=== PATIENT | female | born 2000 | race Caucasian/White ===

== ENCOUNTER 2018-03-30 22:23 | Emergency (ER) | payer SELFPAY ==
[2018-03-30 22:24] VITALS: BP 139/78; PULSE 77; RESP 16; TEMP 36.1; O2SAT 100; BMI 26.2
--- NOTE | 2018-03-30 23:11 | EKG12_ITS ---
Test Reason : GI BLEED Blood Pressure : / mmHG Vent. Rate : 061 BPM Atrial Rate : 061 BPM P-R Int : 144 ms QRS Dur : 082 ms QT Int : 402 ms P-R-T Axes : 053 058 035 degrees QTc Int : 404 ms Normal sinus rhythm Normal ECG Confirmed by BHASKAR ANDINO, IVONNE ([id number]), editor magazine SHERYL SANTOS ([id number] on 04/01/2018 2:19:54 PM Referred By: MAURICIO Confirmed By:IVONNE MURO MD
--- NOTE | 2018-03-30 23:11 | RAD_ITS ---
STUDY: X-RAY CHEST REASON FOR EXAM: Female, 17 years old. Chest pain TECHNIQUE: 2 views COMPARISON: None. FINDINGS: The lungs are clear and expanded. There is no demonstrated pleural abnormality. Normal size heart. Normal mediastinum and saida. Normal visualized pulmonary arteries. Normal visualized aortic arch and descending thoracic aorta. Normal visualized thoracic spine. Normal visualized ribs, clavicles, and shoulders. There is no demonstrated abnormality of the visualized soft tissue structures of the upper abdomen. RAD/Chest PA and Lateral IMPRESSION: Normal x-ray examination of the chest. No acute findings in the lungs Electronically Signed: Rey Schilling MD at 0:24 EST Tel , Service support ,
--- NOTE | 2018-03-30 23:14 | ED.RN ---
NO OLD EKGS IN MUSE
[2018-03-30 23:32] LABS: Absolute Lymphocyte Count 3.91 X10^3/ul (0.83-4.51); Absolute Neutrophil Count 3.1 X10^3/uL (2.0-7.7); Basophil# 0.09 X10^3/uL; Basophil% 1.1 % (0-1); Eosinophil# 0.11 X10^3/uL; Eosinophils% 1.4 % (0-5); Hemoglobin 13.2 g/dl (12.0-15.0); Lymphocyte # 3.91 X10^3/ul (4.0); Lymphocyte % 48.1 % (19-41); Mean Corp Hgb Conc 33.8 g/gl (32-36); Mean Corpuscular Hgb 30.6 pg (27.0-32.0); Mean Corpuscular Volume 90.5 fL (81-99); Mean Platelet Vol. 8.9 fl (6.2-12.0); Monocyte# 0.87 X10^3/uL; Monocyte% 10.7 % (0-10); Neutrophil % 38.1 % (47-70); Platelet Count 369 K/mm3 (150-450); RBC Distribution Width CV 12.3 % (11.6-14.6); RBC Distribution Width SD 40.5 fl (35.1-43.9); Red Blood Count 4.31 M/mm3 (4.2-5.4); White Blood Count 8.1 K/mm3 (4.4-11.0)
[2018-03-30 23:33] LABS: Differential Indicated SCAN CRITERIA MET; POSITIVE COUNT NO; POSITIVE DIFFERENTIAL NO; POSITIVE MORPHOLOGY YES
[2018-03-30 23:43] LABS: Anion Gap 8 (5-15); BUN 9 mg/dL (7-18); BUN/Creat Ratio 12.7 RATIO (10-20); Calcium,Total 8.6 mg/dL (8.5-10.1); Chloride 103 mmol/L (98-107); Creatinine, Serum 0.71 mg/dL (0.55-1.02); EST Glomerular Filtration Rate 112 mL/min (>60); Est Glom Filt Rate - Afr Amer 136 mL/min (>60); Estimated Creatinine Clearance 105.43 ml/min; Glucose 79 mg/dL (74-106); Potassium 3.1 mmol/L (3.5-5.1); Sodium Level 139 mmol/L (136-145)
--- NOTE | 2018-03-31 00:22 | ED.RN ---
lab called with critical lab results. Positive fecal occult blood. Dr. Orellana made aware. no new orders at this time
[2018-03-31 00:34] VITALS: BP 103/62; PULSE 60; RESP 18; O2SAT 99
--- NOTE | 2018-03-31 00:53 | ED.DCSUM_ITS ---
- ER Visit Summary Date of Service: 03/31/18 Chief Complaint: Multiple complaints History of Present Illness: The patient is a 17 F who presents with multiple complaints. She states that she has been sick for about 2 weeks. She reports subjective fevers congestion rhinorrhea sore throat and cough. She states she was seen in urgent care and had a positive rapid strep so was started on amoxicillin and Magic mouthwash. She complains of some ongoing shortness of breath. She has had diarrhea since starting the hallux. Today she noticed some blood on the toilet tissue. No abdominal pain nausea vomiting. She is not anticoagulated. No history of prior similar symptoms. Physical Examination: Afebrile vitals are normal Moist mucous membranes Heart regular rate and rhythm Lungs are clear Abdomen soft nontender Mucoid blood streaked stool on rectal examination nontender Test Results: EKG shows sinus rhythm at a rate of 61. Labs notable for potassium 3.1. Hemoccult was positive. Chest x-ray shows no acute findings. Emergency Department Course and Treatment: I suspect that the patient's diarrhea is related to her antibiotics and hematochezia is likely just related to the diarrhea. She is stable. She has normal hemoglobin and antibiotics. She was advised to follow-up as an outpatient. She understands return for new or worsening symptoms and she was discharged home. Treatment Plan: [] Disposition: Discharge Impression: Hematochezia Bronchitis This note was generated with [employer] dictation software. It may contain incorrect words, spelling, and punctuation that were not noted in review of the chart prior to signing ED Disposition - Plan for ED Patient: Chief Complaint: GI Bleed Referrals: Raleigh Brink DO [Primary Care Provider] -
--- NOTE | 2018-03-31 00:53 | ED.DEP ---
ED Disposition - Plan for ED Patient: Chief Complaint: GI Bleed Instructions: ED Hematochezia Stable Referrals: Raleigh Brink DO [Primary Care Provider] -
[2018-03-31 01:07] VITALS: BP 103/62; PULSE 64; RESP 18; O2SAT 99
== END 2018-03-31 01:07 | disposition home or self-care (01) ==
PROVIDERS: Emergency Provider Emergency Medicine; Family Provider Family Medicine; PCP Family Medicine
DX: J40 Bronchitis, not specified as acute or chronic (principal); K92.1 Melena; F32.9 Major depressive disorder, single episode, unspecified
CPT/HCPCS: 71046; 80048; 82274; 85025; 93005; 99282

== ENCOUNTER 2018-05-21 18:36 | Emergency (ER) | payer MEDICAID, SELFPAY ==
[2018-05-21 18:37] VITALS: BP 131/73; PULSE 89; RESP 16; TEMP 36.4; O2SAT 100; BMI 25.6
[2018-05-21] MEDS: 0.9% Normal Saline 1,000 ML 1000 ML IV (19:43)
[2018-05-21] MEDS: Ondansetron 4 MG/2 ML Vial IV (19:44)
--- NOTE | 2018-05-21 19:56 | ED.VISSUMM ---
- ER Visit Summary Date of Service: 05/21/18 Chief Complaint: Feeling poorly History of Present Illness: The patient is a 18 F who states for the past 1-2 weeks she has felt dizzy. She states that she has been feeling nauseated. She states that she has hit her head several times at work and wonders if that has been making her dizzy. Each time she has hit her head she did resulted in no trauma and no loss of consciousness. Today she was more nauseated than normal. She also notes a midline pelvic pain. She states that she is due for her menstrual cycle. She is concerned that she may have an ovarian cyst. no fevers. She has had prior cholecystectomy. She has not seen her doctor for this. Physical Examination: Afebrile vital signs are stable Gen: Well-nourished well-developed Head: Normocephalic atraumatic Eyes: Perrl EOMI ENT: TMs clear no rhinorrhea moist mucous membranes Neck: Supple no lymphadenopathy no JVD nontender CVS: Regular rate rhythm no murmurs normal S1-S2 Respiratory: No distress clear to auscultation bilaterally chest nontender Abdomen: Soft nontender nondistended normal bowel sounds no masses Back: Nontender Extremity: Nontender no edema Skin: Normal color no rash Neuro: alert orientated ?3 CN II-XII intact normal strength sensation reflexes gait cerebellar Psych: Normal affect normal mood Test Results: CBC CMP lipase urinalysis patency test negative. CT down pelvis demonstrated small bilateral cyst on the ovaries. Emergency Department Course and Treatment: Patient received IV fluids and Zofran. Write for the patient have Zofran. She will be discharged home with supportive care instructions to return if worsening or concerns. She needs to follow-up with her doctors. Impression: 1. Nausea 2. Bilateral ovarian cyst This note was generated with [employer] dictation software. It may contain incorrect words, spelling, and punctuation that were not noted in review of the chart prior to signing ED Disposition - Plan for ED Patient: Disposition: Home or Assisted Living Chief Complaint: Abd Pain Instructions: ED Cyst Ovarian Prescriptions: Ondansetron [Zofran Odt] 4 mg PO Q6H PRN PRN #14 tab PRN Reason: Nausea Referrals: Raleigh Brink, [Primary Care Provider] - 3-5 Days if not improving
[2018-05-21 20:01] LABS: Bacteria 0 SEEN /hpf (None Seen); Mucous, Urine 0 SEEN /hpf (<or=2+); Red Blood Cells-Urine 0 SEEN /hpf (0-5); Squamous Epithelial Cells - UA 0 SEEN /hpf (5-10); White Blood Cells 0 SEEN /hpf (0-5)
[2018-05-21 20:10] LABS: Color, Urine Yellow (Yellow); Glucose, Dipstick Normal (Normal); Ketone-Dipstick Negative (Negative); Leukocyte Esterase-Dipstick Negative /ul (Negative); Nitrite-Dipstick Negative (Negative); Occult Blood-Urine Negative /ul (Negative); Protein-Dipstick Negative (Negative); Specific Gravity, Urine 1.015 (1.002-1.030); Urine Bilirubin Dipstick Negative (Negative); Urine Clarity Clear (Clear); Urine Urobilinogen Normal (Normal)
[2018-05-21 20:18] LABS: Absolute Neutrophil Count 3.1 X10^3/uL (2.0-7.7); Basophil# 0.04 X10^3/uL; Basophil% 0.6 % (0-1); Eosinophil# 0.13 X10^3/uL; Eosinophils% 1.8 % (0-5); Hematocrit 39.2 % (37-47); Hemoglobin 12.7 g/dl (12.0-15.0); Lymphocyte % 42.7 % (19-41); Mean Corp Hgb Conc 32.4 g/gl (32-36); Mean Corpuscular Hgb 29.8 pg (27.0-32.0); Mean Platelet Vol. 10.2 fl (6.2-12.0); Monocyte# 0.72 X10^3/uL; Monocyte% 10.2 % (0-10); Neutrophil # 3.13 X10^3/uL (2.7-7.7); Neutrophil % 44.6 % (47-70); POSITIVE COUNT NO; POSITIVE DIFFERENTIAL NO; POSITIVE MORPHOLOGY NO; Platelet Count 267 K/mm3 (150-450); RBC Distribution Width CV 12.9 % (11.6-14.6); RBC Distribution Width SD 41.9 fl (35.1-43.9); Red Blood Count 4.26 M/mm3 (4.2-5.4)
[2018-05-21 20:23] LABS: ALB/GLOB Ratio 1.1 RATIO (0.9-2.4); AST(SGOT) 41 U/L (15-37); Alanine Aminotransfer ALT/SGPT 121 U/L (13-56); Albumin, Serum 3.6 g/dL (3.2-5.0); Alkaline Phosphatase 67 U/L (45-117); Anion Gap 8 (5-15); BUN 20 mg/dL (7-18); BUN/Creat Ratio 28.1 RATIO (10-20); Calcium,Total 8.8 mg/dL (8.5-10.1); Chloride 105 mmol/L (98-107); Creatinine, Serum 0.71 mg/dL (0.55-1.02); EST Glomerular Filtration Rate 111 mL/min (>60); Est Glom Filt Rate - Afr Amer 134 mL/min (>60); Estimated Creatinine Clearance 99.96 ml/min; Globulin 3.4 g/dL (2.2-4.2); Glucose 85 mg/dL (74-106); Internal QC Validated? YES +Cl - CLEAR BKGD; Lipase 91 U/L (73-393); Potassium 3.5 mmol/L (3.5-5.1); Pregnancy, Urine Negative Negative; Sodium Level 142 mmol/L (136-145)
--- NOTE | 2018-05-21 20:48 | CT_ITS ---
STUDY: CT ABDOMEN AND PELVIS WITH CONTRAST REASON FOR EXAM: Female, 18 years old. Abdominal pain, history of ovarian cysts RADIATION DOSAGE (If Supplied By Facility): CTDIvol = ( 12.93 ) mGy, DLP = ( 837.26 ) mGycm TECHNIQUE: Transaxial images were obtained from the dome of the diaphragm to the symphysis pubis without oral contrast. 100ML ml of Isovue 300 contrast was administered. Sagittal and coronal images were reconstructed. Individualized dose optimization techniques were used for this CT. COMPARISON: None. FINDINGS: The visualized lung bases are unremarkable. The visualized portions of the heart are within normal limits. Normal liver. There is non-visualization of the gallbladder, which may be secondary to either contraction or a prior cholecystectomy. Normal spleen. Normal pancreas. Normal bilateral adrenal glands. Normal right kidney. Normal left kidney. Normal visualized stomach. Normal small intestine. Normal colon. The appendix is visualized and appears normal. Normal abdominal aorta. Normal inferior vena cava. Normal retroperitoneum. Normal urinary bladder. Uterus is within normal limits. There are small bilateral ovarian cysts. There is a tiny amount of free fluid in the deep right pelvis. Normal abdominal wall. Normal osseous structures. CT/Abdomen/Pelvis W IV Cont ONLY IMPRESSION: 1. The gallbladder is not visualized. 2. There are small bilateral ovarian cysts. 3. There is a tiny amount of free fluid in the deep right pelvis. This may be physiologic. Electronically Signed: Kyrie Ruiz MD at 21:49 EST , Service support ,
--- NOTE | 2018-05-21 21:20 | NURSING ---
NO INDICATION OF INFECTION IN LAB WORK/VS.
[2018-05-21 21:25] VITALS: BP 112/60; PULSE 78; RESP 18; O2SAT 98
== END 2018-05-21 22:38 | disposition home or self-care (01) ==
PROVIDERS: Emergency Provider Emergency Medicine; Family Provider Family Medicine; PCP Family Medicine
DX: R11.0 Nausea (principal); N83.202 Unspecified ovarian cyst, left side; N83.201 Unspecified ovarian cyst, right side
CPT/HCPCS: 74177; 80053; 81001; 81025; 83690; 85025; 96361; 96374; 99283; Q9967; A4216; J2405

== ENCOUNTER → 2018-06-03 16:38 | Outpatient (CLI) | payer MEDICAID, SELFPAY ==
[2018-06-03 13:58] VITALS: BMI 25.6
--- NOTE | 2018-06-03 16:41 | US_ITS ---
STUDY: ULTRASOUND OF THE FEMALE PELVIS - COMPLETE REASON FOR EXAM: Female, 18 years old. Pelvic pain LMP: 04/23/2019 TECHNIQUE: Transabdominal and Transvaginal TECHNICAL QUALITY: Adequate. COMPARISON: None. FINDINGS: The uterus is anteverted and is in a midline position. The uterus measures 9 x 4.8 x 3.6 cm. Normal uterine cervix. The endometrium measures 1.2 mm in thickness, and is hyperechoic. There is no demonstrated endometrial mass. There is no demonstrated myometrial mass. I.U.D. - The patient does not have an I.U.D. The right ovary is visualized. The right ovary measures 4.9 x 4 x 2.1 cm. There is complex RIGHT ovarian cyst measuring 2.7 cm. There is no visualized right adnexal mass or complex lesion. There is normal arterial and normal venous vascularity. The left ovary is visualized. The left ovary measures 3.4 x 2.5 x 1.7 cm. There is no left ovarian cyst or ovarian mass. There is no visualized left adnexal mass or complex lesion. There is normal arterial and normal venous vascularity. There is minimal fluid in the cul-de-sac. US/Pelvic (Non ) IMPRESSION: There is a complex cyst in the RIGHT ovary measuring 2.7 cm. There is NO ovarian torsion. There is NO free pelvic fluid. Electronically Signed: Sivakumar Campbell MD at 2:50 EST , Service support ,
== END ==
PROVIDERS: Family Provider Family Medicine; PCP Family Medicine; Referring Provider Obstetrics & Gynecology; Visit Provider Obstetrics & Gynecology
DX: N83.291 Other ovarian cyst, right side (principal)
CPT/HCPCS: 76856

== ENCOUNTER 2018-06-10 20:19 | Emergency (ER) | payer MEDICAID, SELFPAY ==
[2018-06-03 13:58] VITALS: BMI 25.6
[2018-06-10 20:20] VITALS: BP 113/69; PULSE 105; RESP 16; TEMP 36.6; O2SAT 98; BMI 25.7
--- NOTE | 2018-06-10 21:41 | EKG12_ITS ---
Test Reason : CP Blood Pressure : / mmHG Vent. Rate : 093 BPM Atrial Rate : 093 BPM P-R Int : 138 ms QRS Dur : 076 ms QT Int : 348 ms P-R-T Axes : 056 050 038 degrees QTc Int : 432 ms Normal sinus rhythm Normal ECG Confirmed by IVONNE MURO MD ([id number]), editor managing newspaper MARIZOL ALBERT ([id number]) on 06/12/2018 1:58:39 PM Referred By: Asuncion Garcia Confirmed By:IVONNE MURO MD
[2018-06-10 21:56] LABS: Absolute Lymphocyte Count 2.45 X10^3/ul (0.83-4.51); Absolute Neutrophil Count 3.5 X10^3/uL (2.0-7.7); Basophil# 0.04 X10^3/uL; Basophil% 0.6 % (0-1); Eosinophil# 0.09 X10^3/uL; Eosinophils% 1.4 % (0-5); Hematocrit 39.5 % (37-47); Hemoglobin 12.7 g/dl (12.0-15.0); Lymphocyte # 2.45 X10^3/ul (4.0); Lymphocyte % 37.3 % (19-41); Mean Corp Hgb Conc 32.2 g/gl (32-36); Mean Corpuscular Hgb 29.5 pg (27.0-32.0); Mean Corpuscular Volume 91.9 fL (81-99); Mean Platelet Vol. 9.5 fl (6.2-12.0); Monocyte# 0.54 X10^3/uL; Monocyte% 8.2 % (0-10); Neutrophil # 3.45 X10^3/uL (2.7-7.7); Neutrophil % 52.5 % (47-70); Platelet Count 288 K/mm3 (150-450); RBC Distribution Width CV 13.2 % (11.6-14.6); RBC Distribution Width SD 43.8 fl (35.1-43.9); White Blood Count 6.6 K/mm3 (4.4-11.0)
--- NOTE | 2018-06-10 21:56 | RAD_ITS ---
STUDY: X-RAY CHEST REASON FOR EXAM: Female, 18 years old. Shortness of breath chest pain. Headache TECHNIQUE: PA and lateral views of the chest. COMPARISON: March 30, 2018 chest x-ray FINDINGS: The lungs are clear and expanded. There is no demonstrated pleural abnormality. Normal size heart. Normal mediastinum and saida. Normal visualized pulmonary arteries. Normal visualized aortic arch and descending thoracic aorta. Normal visualized thoracic spine. Normal visualized ribs, clavicles, and shoulders. There is no demonstrated abnormality of the visualized soft tissue structures of the upper abdomen. RAD/Chest PA and Lateral IMPRESSION: Normal x-ray examination of the chest. Electronically Signed: Aissatou Khan MD at 22:20 EST Tel , Service support ,
[2018-06-10 21:59] LABS: POSITIVE COUNT NO; POSITIVE DIFFERENTIAL NO; POSITIVE MORPHOLOGY NO
[2018-06-10 22:16] LABS: Anion Gap 7 (5-15); BUN 13 mg/dL (7-18); BUN/Creat Ratio 17.7 RATIO (10-20); Calcium,Total 8.4 mg/dL (8.5-10.1); Chloride 104 mmol/L (98-107); Creatinine, Serum 0.73 mg/dL (0.55-1.02); EST Glomerular Filtration Rate 107 mL/min (>60); Est Glom Filt Rate - Afr Amer 130 mL/min (>60); Estimated Creatinine Clearance 101.69 ml/min; Glucose 89 mg/dL (74-106); Potassium 3.5 mmol/L (3.5-5.1); Sodium Level 139 mmol/L (136-145)
[2018-06-10 22:22] LABS: D-Dimer Quantitative (DVT/PE) < 0.27 FEU/ug/m (0.27-0.49)
[2018-06-10 22:25] VITALS: BP 104/68; PULSE 81; RESP 18; O2SAT 97
[2018-06-10] MEDS: 0.9% Normal Saline 1,000 ML 1000 ML IV (22:26)
--- NOTE | 2018-06-10 22:43 | ED.DCSUM_ITS ---
- ER Visit Summary Date of Service: 06/10/18 Chief Complaint: Chest pain History of Present Illness: The patient is a 18 F who presents with chest pain. She was recently on antibiotics for an ovarian cyst. She states she did stop to these due to side effects which she thought may have been from the antibiotics. She complains of 1 week of chest pain palpitations heart racing shortness of breath nausea headaches and dizziness. Physical Examination: Heart rate 105 vitals otherwise normal Moist mucous membranes Heart regular rhythm slightly tachycardic Lungs are clear Abdomen soft nontender Extremities nontender without edema Alert Test Results: EKG shows sinus rhythm at a rate of 93. CBC BMP normal. D-dimer negative. Troponin negative. Two-view chest x-ray normal. Emergency Department Course and Treatment: On reevaluation patient is resting comfortably in no distress. Her workup as above is unremarkable. I do not believe her symptoms are due to serious or life-threatening pathology. She was advised to follow-up as an outpatient. She understands return for new or worsening symptoms. She was discharged. Treatment Plan: [] Disposition: Discharge Impression: Chest pain This note was generated with [employer] dictation software. It may contain incorrect words, spelling, and punctuation that were not noted in review of the chart pr ior to signing ED Disposition - Plan for ED Patient: Referrals: Raleigh Brink DO [Primary Care Provider] -
--- NOTE | 2018-06-10 22:43 | ED.DEP ---
ED Disposition - Plan for ED Patient: Instructions: ED Chest Pain NonCardiac Referrals: Raleigh Brink DO [Primary Care Provider] -
[2018-06-10 23:02] VITALS: BP 102/48; PULSE 78; RESP 15; O2SAT 99
== END 2018-06-10 23:14 | disposition home or self-care (01) ==
LOC: ED 22:18
PROVIDERS: Emergency Provider Emergency Medicine; Family Provider Family Medicine; PCP Family Medicine
DX: R07.9 Chest pain, unspecified (principal)
CPT/HCPCS: 71046; 80048; 84484; 85025; 85379; 93005; 96360; 99284; J7030; A4216

== ENCOUNTER 2018-07-24 19:32 | Emergency (ER) | payer SELFPAY ==
[2018-07-24 19:33] VITALS: BP 119/76; PULSE 80; RESP 20; TEMP 36.4; O2SAT 100; BMI 30.4
--- NOTE | 2018-07-24 21:08 | ED.DCSUM_ITS ---
- ER Visit Summary Date of Service: 07/24/18 Chief Complaint: Cough History of Present Illness: The patient is a 18 F history of depression. States for 2 weeks she has had a cough. Greenish sputum. Saw her primary care physician 1-2 weeks ago was given a Kenalog IM injection. States she is no better. Denies hemoptysis. No chest pain. No leg pain or swelling. Non- smoker. No prior history of DVT or PE no risk factors. Physical Examination: Well-appearing young female. Vital signs are stable. Afebrile. Pulse ox 9% room air no hypoxia. H EENT exam unremarkable. No rhinorrhea. Neck nontender no lymphadenopathy. Lungs clear to auscultation bilaterally. No rales, rhonchi or wheezing. Equal symmetrical. No distress. Heart regular rate and rhythm no murmur. Rate about 80. Abdomen soft nontender. Normal bowel sounds no peritoneal signs. Extremities moves all 4. Calves nontender without edema or cords. Neurologically she is awake alert with no focal motor deficits. Test Results: Chest x-ray 2 views show no acute abnormality. Normal cardiac silhouette mediastinum. Read both by myself and radiologist. Emergency Department Course and Treatment: Patient's history and exam are consistent with a viral URI. I do not feel she needs antibiotic therapy. Treatment Plan: Inhaler 2 puffs every 2-4 hours as needed. Follow-up with your doctor if not improving. Repeat exam patient is doing well and will be discharged. Disposition: Discharge Impression: Acute viral URI This note was generated with [employer] dictation software. It may contain incorrect words, spelling, and punctuation that were not noted in review of the chart prior to signing ED Disposition - Plan for ED Patient: Prescriptions: Albuterol Inhaler [Ventolin Hfa] 2 puff INHALATION Q4H PRN PRN #1 inhaler PRN Reason: Shortness Of Breath Referrals: Raleigh Brink DO [Primary Care Provider] - 1 Week if not improving Additional Instructions: Inhaler 1-2 puffs every 4 hours as needed. Plenty fluids and rest. Follow-up with your doctor if not improving.
--- NOTE | 2018-07-24 21:15 | RAD_ITS ---
STUDY: X-RAY CHEST REASON FOR EXAM: Female, 18 years old. Cough, fever TECHNIQUE: Frontal and lateral views COMPARISON: June 10, 2018 FINDINGS: The lungs are clear and expanded. There is no demonstrated pleural abnormality. Normal size heart. Normal mediastinum and saida. Normal visualized pulmonary arteries. Normal visualized aortic arch and descending thoracic aorta. Normal visualized thoracic spine. Normal visualized ribs, clavicles, and shoulders. There is no demonstrated abnormality of the visualized soft tissue structures of the upper abdomen. RAD/Chest PA and Lateral IMPRESSION: Normal x-ray examination of the chest. Electronically Signed: Eber Wayne DO at 21:29 EDT Tel [phone], Service support ,
[2018-07-24 21:17] VITALS: BP 120/81; PULSE 69; RESP 16; O2SAT 100
[2018-07-24 21:39] VITALS: RESP 14
== END 2018-07-24 21:45 | disposition home or self-care (01) ==
PROVIDERS: Emergency Provider Emergency Medicine; Family Provider Family Medicine; PCP Family Medicine
DX: J06.9 Acute upper respiratory infection, unspecified (principal); J40 Bronchitis, not specified as acute or chronic; F32.9 Major depressive disorder, single episode, unspecified
CPT/HCPCS: 71046; 99282

== ENCOUNTER 2018-07-26 17:41 | Emergency (ER) | payer MEDICAID, SELFPAY ==
[2018-07-26 17:41] VITALS: BP 115/69; PULSE 88; RESP 16; TEMP 37.2; O2SAT 100; BMI 25.7
--- NOTE | 2018-07-26 18:15 | EKG12_ITS ---
Test Reason : COUGH Blood Pressure : / mmHG Vent. Rate : 080 BPM Atrial Rate : 080 BPM P-R Int : 146 ms QRS Dur : 080 ms QT Int : 364 ms P-R-T Axes : 049 041 027 degrees QTc Int : 419 ms Normal sinus rhythm Normal ECG Confirmed by BHASKAR ANDINO, IVONNE ([id number]), desk editor JUNITO JANE ([id number]) on 07/29/2018 11:22:11 AM Referred By: YULIET Confirmed By:IVONNE MURO MD
--- NOTE | 2018-07-26 18:20 | RAD_ITS ---
STUDY: X-RAY CHEST REASON FOR EXAM: Female, 18 years old. Cough, fever and chest pain with dizziness. TECHNIQUE: 2 views COMPARISON: Prior chest exam of July 24, 2018 FINDINGS: The lungs are clear and expanded. There is no demonstrated pleural abnormality. Normal size heart. Normal mediastinum and saida. Normal visualized pulmonary arteries. Normal visualized aortic arch and descending thoracic aorta. Normal visualized thoracic spine. Normal visualized ribs, clavicles, and shoulders. There is no demonstrated abnormality of the visualized soft tissue structures of the upper abdomen. RAD/Chest PA and Lateral IMPRESSION: Normal x-ray examination of the chest. Electronically Signed: Li York MD at 18:40 EDT , Service support ,
--- NOTE | 2018-07-26 20:57 | ED.VISSUMM ---
- ER Visit Summary Date of Service: 07/26/18 Chief Complaint: Chest pain and cough History of Present Illness: The patient is a 18 F who presents with chest pain and cough that has been getting worse over the past 2 days. Patient states her pain is sharp. Patient states the pain is over the left side of her chest and in her left arm. Patient admits to some lightheadedness. Patient does admit to some weakness of her left arm. Patient states her fever at home was 100. Patient admits to a sore throat and rhinorrhea. Physical Examination: Vital signs are stable. Patient is afebrile. Patient is in no acute distress. Oral mucosa is pink and moist. Neck is supple. Trachea is midline. Heart was regular rate and rhythm. Lungs are diminished bilaterally. There is adequate respiratory effort noted. There is no wheezing or rhonchi noted. Abdomen is soft and nontender. Cranial nerves II through XII are intact. Strength is 5/5 bilaterally upper and lower extremities. There are no sensory deficits noted Test Results: EKG showed normal sinus rhythm with a rate of 80. There are no acute ST or T wave changes. PA and lateral chest x-ray was obtained. There is no acute cardiopulmonary process. Emergency Department Course and Treatment: Patient was advised that this is a viral upper respiratory infection. Patient was advised that there is no pneumonia noted on her chest x-ray. Patient was instructed to drink plenty of fluids. Patient was instructed to follow-up with her primary care physician in 5-7 days. Patient understood and was agreeable with the plan. All questions were answered. Disposition: Discharge home Impression: Viral upper respiratory infection This note was generated with [employer] dictation software. It may contain incorrect words, spelling, and punctuation that were not noted in review of the chart prior to signing ED Disposition - Plan for ED Patient: Disposition: Home or Assisted Living Diagnosis: Viral upper respiratory tract infection with cough Instructions: ED Upper Resp Infec No Abx Tx Referrals: Raleigh Brink DO [Primary Care Provider] - 5-7 Days
[2018-07-26 21:21] VITALS: BP 112/71; PULSE 74; RESP 15; O2SAT 99
[2018-07-26 21:24] VITALS: BP 112/71; PULSE 74; RESP 15; O2SAT 99
== END 2018-07-26 21:29 | disposition home or self-care (01) ==
PROVIDERS: Emergency Provider Emergency Medicine; Family Provider Family Medicine; PCP Family Medicine
DX: J06.9 Acute upper respiratory infection, unspecified (principal); F32.9 Major depressive disorder, single episode, unspecified; F41.9 Anxiety disorder, unspecified
CPT/HCPCS: 71046; 93005; 99283; A4216

== ENCOUNTER 2018-08-14 21:35 | Emergency (ER) | payer MEDICAID, SELFPAY ==
[2018-08-14 21:35] VITALS: BP 105/87; PULSE 76; RESP 16; TEMP 36.7; O2SAT 98; BMI 30.1
[2018-08-14 22:08] LABS: Absolute Lymphocyte Count 2.94 X10^3/ul (0.83-4.51); Absolute Neutrophil Count 3.1 X10^3/uL (2.0-7.7); Basophil# 0.03 X10^3/uL; Basophil% 0.5 % (0-1); Eosinophil# 0.05 X10^3/uL; Eosinophils% 0.8 % (0-5); Hematocrit 36.5 % (37-47); Hemoglobin 12.2 g/dl (12.0-15.0); Lymphocyte # 2.94 X10^3/ul (4.0); Lymphocyte % 44.7 % (19-41); Mean Corp Hgb Conc 33.4 g/gl (32-36); Mean Corpuscular Hgb 29.5 pg (27.0-32.0); Mean Corpuscular Volume 88.2 fL (81-99); Mean Platelet Vol. 9.3 fl (6.2-12.0); Monocyte# 0.45 X10^3/uL; Monocyte% 6.8 % (0-10); Neutrophil % 47.2 % (47-70); Platelet Count 251 K/mm3 (150-450); RBC Distribution Width CV 12.4 % (11.6-14.6); RBC Distribution Width SD 39.6 fl (35.1-43.9); Red Blood Count 4.14 M/mm3 (4.2-5.4); White Blood Count 6.6 K/mm3 (4.4-11.0)
[2018-08-14 22:09] LABS: POSITIVE COUNT NO; POSITIVE DIFFERENTIAL NO; POSITIVE MORPHOLOGY NO
[2018-08-14 22:14] LABS: Bacteria 0 SEEN /hpf (None Seen); Mucous, Urine 0 SEEN /hpf (<or=2+); Red Blood Cells-Urine 0 SEEN /hpf (0-5); Squamous Epithelial Cells - UA 0 SEEN /hpf (5-10); White Blood Cells 0 SEEN /hpf (0-5)
[2018-08-14 22:19] LABS: Color, Urine Yellow (Yellow); Glucose, Dipstick Normal (Normal); Ketone-Dipstick 50 mg/dl (Negative); Leukocyte Esterase-Dipstick Negative /ul (Negative); Nitrite-Dipstick Negative (Negative); Occult Blood-Urine Negative /ul (Negative); Protein-Dipstick Negative (Negative); Specific Gravity, Urine 1.015 (1.002-1.030); Urine Bilirubin Dipstick Negative (Negative); Urine Clarity Clear (Clear); Urine Urobilinogen Normal (Normal)
[2018-08-14 22:29] LABS: Anion Gap 4 (5-15); BUN 16 mg/dL (7-18); BUN/Creat Ratio 21.9 RATIO (10-20); Calcium,Total 8.6 mg/dL (8.5-10.1); Chloride 105 mmol/L (98-107); Creatinine, Serum 0.73 mg/dL (0.55-1.02); EST Glomerular Filtration Rate 108 mL/min (>60); Est Glom Filt Rate - Afr Amer 130 mL/min (>60); Estimated Creatinine Clearance 97.23 ml/min; Glucose 83 mg/dL (74-106); Potassium 3.4 mmol/L (3.5-5.1); Sodium Level 137 mmol/L (136-145)
[2018-08-14 22:36] LABS: Pregnancy, Serum, hCG Quali. NEGATIVE Negative (0-9 Nonpreg)
--- NOTE | 2018-08-14 22:59 | ED.DCSUM_ITS ---
- ER Visit Summary Date of Service: 08/14/18 Chief Complaint: Abdominal pain History of Present Illness: The patient is a 18 F who presents for 1 week of abdominal pain. Patient states she is having nausea but no vomiting or diarrhea. The abdominal pain is diffuse and is worse in the right upper quadrant if she takes a deep breath. Patient states she has urinary frequency. Denies any fever, chest pain, shortness of breath. Patient states she has chronic abdominal pain and is supposed to get a colonoscopy for further evaluation. Patient states that she does have history of constipation and gets abdominal pain prior to bowel movements. She states the pain today is different as it is diffuse. Patient is also complaining of sore throat. She denies cough, congestion, rhinorrhea or other associated complaints. Physical Examination: Vital signs: afebrile, hemodynamically stable, no hypoxia on room air General: well nourished, well developed, in no distress Skin: warm, dry, no rash, no pallor HEENT: normocephalic and atraumatic; PERRL, EOMI, moist mucous membranes, TMs are clear and pearly bilaterally, no oropharyngeal lesions, no tonsillar swelling, exudate or erythema, neck is supple without any tender lymphadenopathy Cardiovascular: regular rate and rhythm without murmurs, no peripheral edema, 2+ pulses all distal extremities Respiratory: No increased work of breathing, lungs are clear to auscultation bilaterally, no rales, rhonchi or wheezing Abdominal: Abdomen is soft, nontender patient is distracted with normoactive bowel sounds, when patient is aware of the exam, she grimaces with palpation of all regions of the abdomen, no guarding or rebound, no masses MSK: Moves all extremities, no deformities, normal strength Neuro: Awake and alert, oriented ?4. No facial droop, sensation and motor function intact and symmetric Test Results: Abnormal Lab Results 08/14/18 08/14/18 08/14/18 21:49 21:49 21:49 WBC 6.6 RBC 4.14 L Hgb 12.2 Hct 36.5 L MCV 88.2 MCH 29.5 MCHC 33.4 RDW 12.4 RDW Differential 39.6 Plt Count 251 MPV 9.3 Immature Gran % (Auto) 0.000 Neut % (Auto) 47.2 Lymph % (Auto) 44.7 H Crosby % (Auto) 6.8 Eos % (Auto) 0.8 Baso % (Auto) 0.5 Absolute Neuts (auto) 3.1 Absolute Lymphs (auto) 2.94 Total Counted Not Reportable Sodium 137 Potassium 3.4 L Chloride 105 Carbon Dioxide 28.0 Anion Gap 4 L BUN 16 Creatinine 0.73 Estim Creat Clear Calc 97.23 Est GFR (MDRD) Af Amer 130 Est GFR (MDRD) Non-Af 108 BUN/Creatinine Ratio 21.9 H Glucose 83 Calcium 8.6 Serum , Qual NEGATIVE Urine Color Urine Clarity Urine pH Ur Specific [place] Urine Protein Urine Glucose (UA) Urine Ketones Urine Occult Blood Urine Nitrite Urine Bilirubin Urine Urobilinogen Ur Leukocyte Esterase Urine RBC Urine WBC Ur Squamous Epith Cells Urine Bacteria Urine Mucus 08/14/18 22:09 WBC RBC Hgb Hct MCV MCH MCHC RDW RDW Differential Plt Count MPV Immature Gran % (Auto) Neut % (Auto) Lymph % (Auto) [place] % (Auto) Eos % (Auto) Baso % (Auto) Absolute Neuts (auto) Absolute Lymphs (auto) Total Counted Sodium Potassium Chloride Carbon Dioxide Anion Gap BUN Creatinine Estim Creat Clear Calc Est GFR (MDRD) Af Amer Est GFR (MDRD) Non-Af BUN/Creatinine Ratio Glucose Calcium Serum , Qual Urine Color Yellow Urine Clarity Clear Urine pH 6.0 Ur Specific [place] 1.015 Urine Protein Negative Urine Glucose (UA) Normal Urine Ketones 50 H Urine Occult Blood Negative Urine Nitrite Negative Urine Bilirubin Negative Urine Urobilinogen Normal Ur Leukocyte Esterase Negative Urine RBC 0 SEEN Urine WBC 0 SEEN Ur Squamous Epith Cells 0 SEEN Urine Bacteria 0 SEEN Urine Mucus 0 SEEN Medications Given Discontinued Medications Acetaminophen (Tylenol) 650 mg PO X1 ONE Stop: 08/14/18 22:57 Last Admin: 08/14/18 23:01 Dose: 650 mg Dicyclomine HCl (Bentyl) 20 mg PO X1 ONE Stop: 08/14/18 22:57 Last Admin: 08/14/18 23:01 Dose: 20 mg Emergency Department Course and Treatment: Patient presents complaining of 1 we ek of abdominal pain with nausea, diffuse, and also of sore throat. Patient's examination of her throat shows no evidence of erythema, exudate or tonsillar swelling, and she has no associated symptoms of lymphadenopathy or fever that would be concerning for strep. Patient's abdominal exam was unremarkable, as she only had tenderness when she was aware of the exam. When pressing with the stethoscope or speaking to the patient during the exam, she had no tenderness or complaints. Labs were performed per nursing protocol and showed no leukocytosis or evidence of UTI. Patient was given Bentyl and Tylenol for her symptoms. She had improvement of her symptoms after the medication treatment. Patient is to keep her appointment for her colonoscopy. Patient was given prescription for Bentyl and Phenergan for symptomatic control at home. She is to follow-up with her primary care doctor if she continues to have this pain. Patient discharged home Treatment Plan: [] Disposition: [] Impression: Diffuse abdominal pain, history of chronic abdominal pain, pharyngitis This note was generated with [employer] dictation software. It may contain incorrect words, spelling, and punctuation that were not noted in review of the chart prior to signing ED Disposition - Plan for ED Patient: Disposition: Home or Assisted Living Instructions: ED Abdominal Pain Unkn Cause, ED Pharyngitis Viral Prescriptions: proMETHazine tablet [Phenergan] 25 mg PO Q6H PRN PRN #10 tab PRN Reason: Nausea RX: Dicyclomine HCl [Bentyl] 20 mg PO TIDAC #20 cap Referrals: Raleigh Brink, [Primary Care Provider] - 3-5 Days if not improving Additional Instructions: Drink plenty of fluids to stay hydrated. You may try the Phenergan for nausea and the Bentyl is for crampy abdominal pain. You may use Tylenol as needed for your throat pain. Keep your appointment for your colonoscopy as scheduled. If you have any worsening of your condition or any new concerning symptoms, please return immediately to the emergency department for another evaluation.
[2018-08-14] MEDS: Acetaminophen 325 MG Tablet 650 MG PO (23:01)
[2018-08-14] MEDS: Dicyclomine 10 MG Capsule 20 MG PO (23:01)
[2018-08-15] VITALS: BP 106/58; PULSE 74; RESP 16; O2SAT 99
== END 2018-08-15 00:01 | disposition home or self-care (01) ==
PROVIDERS: Emergency Provider Emergency Medicine; Family Provider Family Medicine; PCP Family Medicine
DX: R10.9 Unspecified abdominal pain (principal); G89.29 Other chronic pain; J02.9 Acute pharyngitis, unspecified
CPT/HCPCS: 80048; 81001; 84703; 85025; 99283; A4216

== ENCOUNTER 2018-08-28 19:30 | Emergency (ER) | payer MEDICAID, SELFPAY ==
[2018-08-28 19:31] VITALS: BP 96/66; PULSE 83; RESP 16; TEMP 36.7; O2SAT 100; BMI 27.4
--- NOTE | 2018-08-28 19:54 | ED.VIS.URI ---
History of Present Illness Chief Complaint: Cold Sx Informant: Patient Onset: Days - 3 Timing: Continuous Current Severity: Mild Maximum Severity: Mild Relieved by: Not Relieved By: Tylenol Associated Symptoms: Nasal Congestion, Headache, Nausea, Nonproductive cough. Negative for: Vomiting, Shortness of Breath Narrative: Patient presenting secondary to an upper respiratory infection. Patient reports over the course of last 3 days she has been dealing with nasal congestion, headaches, nonproductive cough, dizziness, and ear pain. Symptoms are mild to moderate and have not been alleviated by Tylenol. Patient states it has been associated with posterior pharyngeal drainage, and some nausea but no vomiting. She denies any diarrhea. Patient states that she has been dealing with intermittent crampy abdominal pain for multiple weeks now, she reports that she currently is having some. Patient is status post cholecystectomy. She has irregular menses, and states that there is no chance of . Past Medical History - Allergies and Home Meds Allergies/Adverse Reactions: Allergies azithromycin [From Zithromax] Allergy (Verified 08/28/18 19:33) Other NAUSEA, DIZZINESS, CHEST PAIN naproxen [From Aleve] Allergy (Verified 08/28/18 19:33) Other Primary Care Physician: Raleigh Brink DO [Primary Care Provider] - Smoking Status: Never smoker Review of Systems All systems negative except as indicated General: Reports: Malaise ENT: Reports: Bilateral ear pain, Rhinorrhea, Sore throat Respiratory: Reports: Cough Gastrointestinal: Reports: Nausea Physical Exam Vital Signs/Narrative: Vital Signs Temp Pulse Resp BP Pulse Ox 08/28/18 19:31 98.1 F 83 16 96/66 100 Inital Vital Signs reviewed: Yes General: Well nourished, Well developed Head: Normocephalic, Atraumatic, Frontal Tenderness Eyes: Perrl, EOMI Ears: - - Right TM is mildly erythematous with no evidence of opacity or loss of landmarks. Bilateral TMs are retracted. Nose: - - Rhinorrhea and congestion bilaterally Mouth/Throat: Normal Inspection, No Posterior Erythema Neck: Supple, Nontender Cardiovascular: Regular rate, Regular rhythm, No murmurs Respiratory: No distress, CTA bilaterally, Chest nontender Abdomen: Soft, Nontender, Nondistended, Normal bowel sounds Extremities: Nontender, No edema Skin: Normal color, No rash Neurological: Alert, Oriented x3, Cranial nerves II-XII grossly intact, Normal Strength, Normal Sensation Psychological: Normal affect Diagnostic/Tx/Re-eval - Medical Decision Making Patient presented with an upper respiratory infection. She sounds extremely nasally when I talked to her, that this really seems like a sinusitis. Patient will be treated with Afrin and doxycycline. She was recommended on saline nose rinses. Disposition: Home ED Disposition - Plan for ED Patient: Disposition: Home or Assisted Living Diagnosis: Sinusitis Instructions: ED Sinusitis Abx Tx Prescriptions: Doxycycline 100 mg PO BID #20 cap Referrals: Raleigh Brink DO [Primary Care Provider] - As Needed
[2018-08-28] MEDS: Oxymetazoline 0.05% 1 SPRAY SPRAY.BTL 2 SPRAY NASAL (20:03)
[2018-08-28] MEDS: Doxycycline 100 MG CAPSULE PO (20:03)
== END 2018-08-28 20:07 | disposition home or self-care (01) ==
PROVIDERS: Emergency Provider Emergency Medicine; Family Provider Family Medicine; PCP Family Medicine
DX: J32.9 Chronic sinusitis, unspecified (principal)
CPT/HCPCS: 99283

== ENCOUNTER 2018-09-23 20:20 | Emergency (ER) | payer MEDICAID, SELFPAY ==
[2018-09-23 20:20] VITALS: BP 114/67; PULSE 81; RESP 16; TEMP 36.6; O2SAT 99; BMI 26.5
--- NOTE | 2018-09-23 20:38 | EKG12_ITS ---
Test Reason : CP Blood Pressure : / mmHG Vent. Rate : 063 BPM Atrial Rate : 063 BPM P-R Int : 112 ms QRS Dur : 078 ms QT Int : 376 ms P-R-T Axes : 028 014 014 degrees QTc Int : 384 ms Normal sinus rhythm Normal ECG Confirmed by JOÃO ANDINO, TOMY ([id number]), newspaper editor JUNITO JANE ([id number]) on 09/26/2018 1:22:12 PM Referred By: VIPUL Confirmed By:TOMY MOYER MD
--- NOTE | 2018-09-23 20:43 | ED.DCSUM_ITS ---
History of Present Illness Chief Complaint: Chest Pain Detail of Chief Complaint: Inflammation of my chest Informant: Patient Onset: Weeks - 1 week, Month(s) - Viral symptoms started 1 month ago Context: Sudden Onset Timing: Continuous Quality: Pain left side of chest Location: Left of sternum Current Severity: Mild Maximum Severity: Moderate Worsened by: Breathing, movement and palpation Relieved by: Remaining still Associated Symptoms: URI viral type symptoms Narrative: Patient is a 18-year-old whose last normal menstrual period was 1 week ago and presents with left-sided chest pain. She states she has information her chest. She reports rhinorrhea. She denies postnasal drainage, sore throat. She does have cough that is productive of colored sputum. She is a non-smoker. She has no history of PE or DVT. She is not on control pills. She has no risk factors for PE or DVT nor has she had a PE or DVT in the past. He denies leg pain, swelling discoloration. She denies GI, or UTILITY SPECIALIST symptoms. Prior similar symptoms: No Recent Illness/Hospitalization: No - Past Medical History (1) Complex cyst of right ovary Status: Acute Past Medical History - Allergies and Home Meds Allergies/Adverse Reactions: Allergies azithromycin [From Zithromax] Allergy (Verified 09/23/18 20:23) Other NAUSEA, DIZZINESS, CHEST PAIN naproxen [From Aleve] Allergy (Verified 09/23/18 20:23) Other Primary Care Physician: Raleigh Brink DO [Primary Care Provider] - Prior records reviewed: Yes Surgical History: no surgical history Lives: Alone Smoking Status: Never smoker Alcohol: None Review of Systems General: Denies: Chills, Fever, Sweats Eyes: Denies: Visual changes - bilaterally, Blurred Vision - bilaterally, Diplopia ENT: Denies: Bilateral ear pain, Sore throat Cardiovascular: Reports: Chest pain. Denies: Palpitations, Heart racing, -, - Respiratory: Reports: Cough, Sputum. Denies: Dyspnea, Dyspnea on exertion, Orthopnea, Paroxysmal nocturnal dyspnea, -, - Gastrointestinal: Denies: Abdominal pain, Nausea, Vomiting, Diarrhea, Melena, Hematochezia Genitourinary: Denies: Dysuria, Hematuria, Frequency Musculoskeletal: Denies: Myalgias, Arthralgias, Back pain, Extremity Pain Skin: Denies: Rash, Wounds Neurological: Denies: Headache, Weakness, Parasthesia, Numbness Hematologic: Denies: Easy bruising, Easy bleeding Allergy: Denies: Uticaria, Swelling of the mouth Physical Exam Vital Signs/Narrative: Vital Signs Temp Pulse Resp BP Pulse Ox 09/23/18 20:20 98 F 81 16 114/67 99 Inital Vital Signs reviewed: Yes General: Well nourished, Well developed, No Acute Distress Head: Normocephalic, Atraumatic Eyes: Perrl, EOMI ENT: Moist mucous membranes, No rhinorrhea, TM's clear Neck: Supple, Nontender, No lymphadenopathy, No JVD, - Cardiovascular: Regular rate, Regular rhythm, No murmurs Respiratory: No distress, CTA bilaterally, Chest tenderness - Fourth fifth left intercostal space Abdomen: Soft, Nontender, Nondistended, Normal bowel sounds Extremities: Nontender, No edema, - - There is no asymmetry, swelling, discoloration, leg vein distention, palpable cords or tenderness along the distribution of the deep venous system. Skin: Normal color, No rash, No Trauma. Negative for: Cyanosis, Jaundice Neurological: Alert, Oriented x3, Cranial nerves II-XII grossly intact, Normal Strength, Normal Sensation Psychological: Normal affect, Normal Mood Diagnostic/Tx/Re-eval Chest X-Ray - ED: 2 View, Unchanged - Unchanged from July 26, 2018, Normal, Heart, Lungs, Mediastinum, Bony Structures, No Acute Disease - EKG Initial EKG Interpretation: Sinus Rhythm - Ocular rate is 63. HI interval, cures duration, QT interval and axis are normal. EKG is normal. - Medical Decision Making KG was obtained per nurse protocol. Chest x-ray was obtained since patient has productive cough for 1 month. She does have reproducible pain and history and physical is consistent with costochondritis as the cause of her chest pain. Testicular was obtained to assess for bronchitis versus pneumonia. Patient is PERC negative. ED Disposition - Plan for ED Patient: Disposition: Home or Assisted Living Diagnosis: Purulent bronchitis, Asthma exacerbation, Costochondritis, acute Prescriptions: Doxycycline 100 mg PO BID #14 capsule Naproxen [Naprosyn] 500 mg PO BID #14 tablet Referrals: Raleigh Brink, [Primary Care Provider] - 1 Week if not improving Additional Instructions: Prescriptions were electronically transmitted to [employer].
--- NOTE | 2018-09-23 20:45 | RAD_ITS ---
STUDY: X-RAY CHEST REASON FOR EXAM: Female, 18 years old. Left-sided chest pain. TECHNIQUE: PA and lateral chest. COMPARISON: 07/26/2018. FINDINGS: The lungs are clear and expanded. There is no demonstrated pleural abnormality. Normal size heart. Normal mediastinum and saida. Normal visualized pulmonary arteries. Normal visualized aortic arch and descending thoracic aorta. Normal visualized thoracic spine. Normal visualized ribs, clavicles, and shoulders. There is no demonstrated abnormality of the visualized soft tissue structures of the upper abdomen. RAD/Chest PA and Lateral IMPRESSION: Normal x-ray examination of the chest. Electronically Signed: Ysabel Oneill MD at 21:08 EDT Tel , Service support ,
[2018-09-23] MEDS: Doxycycline 100 MG CAPSULE PO (21:28)
[2018-09-23] MEDS: Naproxen 250 MG Tablet 500 MG PO (21:28)
[2018-09-23 21:29] VITALS: BP 120/75; PULSE 70; RESP 16; O2SAT 97
--- NOTE | 2018-09-23 21:34 | ED.DCSUM_ITS ---
- ER Visit Summary Date of Service: 09/23/18 Chief Complaint: [] History of Present Illness: The patient is a 18 F [] Physical Examination: [] Test Results: [] Emergency Department Course and Treatment: [] Treatment Plan: [] Disposition: [] Impression: [] This note was generated with [employer] dictation software. It may contain incorrect words, spelling, and punctuation that were not noted in review of the chart prior to signing ED Disposition - Plan for ED Patient: Disposition: Home or Assisted Living Diagnosis: Purulent bronchitis, Costochondritis, acute Instructions: ED Chest Pain Costochondritis, ED Upper Resp Infec Abx Tx Prescriptions: Doxycycline 100 mg PO BID #14 capsule Naproxen [Naprosyn] 500 mg PO BID #14 tablet Referrals: Raleigh Brink DO [Primary Care Provider] - 1 Week if not improving Additional Instructions: Prescriptions were electronically transmitted to [facility].
== END 2018-09-23 21:38 | disposition home or self-care (01) ==
PROVIDERS: Emergency Provider Emergency Medicine; Family Provider Family Medicine; PCP Family Medicine
DX: J41.1 Mucopurulent chronic bronchitis (principal); J45.901 Unspecified asthma with (acute) exacerbation; M94.0 Chondrocostal junction syndrome [Tietze]
CPT/HCPCS: 71046; 93005; 99285; A4216

== ENCOUNTER 2018-10-01 16:41 | Emergency (ER) | payer MEDICAID, SELFPAY ==
[2018-10-01 16:42] VITALS: BP 117/70; PULSE 72; RESP 18; TEMP 36.3; O2SAT 100
[2018-10-01 16:43] VITALS: BP 117/70; PULSE 74; RESP 18; TEMP 36.3; O2SAT 99; BMI 31.1
[2018-10-01 17:24] LABS: Absolute Lymphocyte Count 2.31 X10^3/ul (0.83-4.51); Basophil# 0.04 X10^3/uL; Basophil% 0.7 % (0-1); Eosinophil# 0.09 X10^3/uL; Eosinophils% 1.5 % (0-5); Hematocrit 37.8 % (37-47); Hemoglobin 12.6 g/dl (12.0-15.0); Lymphocyte # 2.31 X10^3/ul (4.0); Lymphocyte % 38.6 % (19-41); Mean Corp Hgb Conc 33.3 g/gl (32-36); Mean Corpuscular Hgb 29.9 pg (27.0-32.0); Mean Corpuscular Volume 89.6 fL (81-99); Mean Platelet Vol. 9.6 fl (6.2-12.0); Monocyte# 0.57 X10^3/uL; Monocyte% 9.5 % (0-10); Neutrophil # 2.96 X10^3/uL (2.7-7.7); Neutrophil % 49.5 % (47-70); Platelet Count 299 K/mm3 (150-450); RBC Distribution Width CV 12.7 % (11.6-14.6); RBC Distribution Width SD 41.4 fl (35.1-43.9); Red Blood Count 4.22 M/mm3 (4.2-5.4)
[2018-10-01 17:26] LABS: Anion Gap 5 (5-15); BUN 21 mg/dL (7-18); BUN/Creat Ratio 25.6 RATIO (10-20); Calcium,Total 8.9 mg/dL (8.5-10.1); Chloride 103 mmol/L (98-107); Creatinine, Serum 0.82 mg/dL (0.55-1.02); EST Glomerular Filtration Rate 94 mL/min (>60); Est Glom Filt Rate - Afr Amer 114 mL/min (>60); Estimated Creatinine Clearance 86.55 ml/min; Glucose 88 mg/dL (74-106); Potassium 3.6 mmol/L (3.5-5.1); Sodium Level 138 mmol/L (136-145)
[2018-10-01 17:29] LABS: POSITIVE COUNT NO; POSITIVE DIFFERENTIAL NO; POSITIVE MORPHOLOGY NO
--- NOTE | 2018-10-01 17:54 | ED.VISSUMM ---
- ER Visit Summary Date of Service: 10/01/18 Chief Complaint: Left-sided chest pain History of Present Illness: The patient is a 18 F past medical history of prior ovarian cyst. Patient states today she is a constant dull aching chest pain in the left. Not exertional. No hemoptysis. Not pleuritic. No history of DVT or PE she is on control. No recent travel, surgery or immobilization. No calf swelling or pain. She is also complaining of upper epigastric abdominal pain. We will contact [facility] Pharmacy and low dose. Physical Examination: Well-appearing young female no acute distress. Vital signs are stable and afebrile pulse ox 9 9% room air no signs of hypoxia. H EENT exam unremarkable. Neck nontender lungs clear to auscultation bilaterally. Heart regular rate and rhythm no murmur. Chest wall nontender. No ecchymosis or bruising no subcu air crepitance. Abdomen soft and nontender normal bowel sounds no peritoneal signs. Extremities moves all 4. Calves are nontender no edema no cords. Equal symmetrical radial pulses. Neurologically she is awake and alert with no focal motor deficits. Back is nontender. Test Results: CBC normal white count 6. Hemoglobin 12. Chemistries normal. UA normal. D-dimer normal. Serum test negative. EKG sinus rhythm rate of 72 with no acute signs of NH or ischemia or dysrhythmia no change from prior EKG from earlier this month. Chest x-ray normal normal cardiac silhouette mediastinum. Normal lung dye read both by myself and the radiologist. Emergency Department Course and Treatment: Patient treated with IV Zofran for nausea and Toradol for pain. Repeat exam patient is doing well at 2117. Exam is benign. Treatment Plan: Discharge to home. Follow-up with primary care physician. Disposition: Discharge Impression: Acute chest pain of uncertain etiology Abdominal pain of uncertain etiology This note was generated with [employer] dictation software. It may contain incorrect words, spelling, and punctuation that were not noted in review of the chart prior to signing ED Disposition - Plan for ED Patient: Referrals: Raleigh Brink DO [Primary Care Provider] -
--- NOTE | 2018-10-01 17:57 | ED.DCSUM_ITS ---
- ER Visit Summary Date of Service: 10/01/18 Chief Complaint: Left-sided chest pain History of Present Illness: The patient is a 18 F past medical history of prior ovarian cyst. Patient states today she is a constant dull aching chest pain in the left. Not exertional. No hemoptysis. Not pleuritic. No history of DVT or PE she is on control. No recent travel, surgery or immobilization. No calf swelling or pain. She is also complaining of upper epigastric abdominal pain. We will contact [facility] Pharmacy and low dose. Physical Examination: Well-appearing young female no acute distress. Vital signs are stable and afebrile pulse ox 9 9% room air no signs of hypoxia. H E ENT exam unremarkable. Neck nontender lungs clear to auscultation bilaterally. Heart regular rate and rhythm no murmur. Chest wall nontender. No ecchymosis or bruising no subcu air crepitance. Abdomen soft and nontender normal bowel sounds no peritoneal signs. Extremities moves all 4. Calves are nontender no edema no cords. Equal symmetrical radial pulses. Neurologically she is awake and alert with no focal motor deficits. Back is nontender. Test Results: CBC normal white count 6. Hemoglobin 12. Chemistries normal. UA normal. D-dimer normal. Serum test negative. EKG sinus rhythm rate of 72 with no acute signs of PA or ischemia or dysrhythmia no change from prior EKG from earlier this month. Chest x-ray normal normal cardiac silhouette mediastinum. Normal lung dye read both by myself and the radiologist. Emergency Department Course and Treatment: Patient treated with IV Zofran for nausea and Toradol for pain. Repeat exam patient is doing well at 2117. Exam is benign. Treatment Plan: Discharge to home. Follow-up with primary care physician. Disposition: Discharge Impression: Acute chest pain of uncertain etiology Abdominal pain of uncertain etiology This note was generated with [employer] dictation software. It may contain incorrect words, spelling, and punctuation that were not noted in review of the chart prior to signing ED Disposition - Plan for ED Patient: Referrals: Raleigh Brink DO [Primary Care Provider] -
[2018-10-01 18:07] LABS: Bacteria 0 SEEN /hpf (None Seen); Mucous, Urine 0 SEEN /hpf (<or=2+); Red Blood Cells-Urine 0 SEEN /hpf (0-5); White Blood Cells 0 SEEN /hpf (0-5)
--- NOTE | 2018-10-01 18:07 | EKG12_ITS ---
Test Reason : CP Blood Pressure : / mmHG Vent. Rate : 072 BPM Atrial Rate : 072 BPM P-R Int : 158 ms QRS Dur : 074 ms QT Int : 368 ms P-R-T Axes : 052 037 036 degrees QTc Int : 402 ms Normal sinus rhythm Cannot rule out Anterior infarct , age undetermined Abnormal ECG Confirmed by VICKI FRENCH ([id number]), photo editor JUNITO JANE ([id number]) on 10/03/2018 8:30:51 AM Referred By: VIPUL/JUANA Confirmed By:VICKI FRENCH
[2018-10-01 18:08] LABS: D-Dimer Quantitative (DVT/PE) < 0.27 FEU/ug/m (0.27-0.49)
[2018-10-01 18:16] LABS: Color, Urine Yellow (Yellow); Glucose, Dipstick Normal (Normal); Ketone-Dipstick Negative (Negative); Leukocyte Esterase-Dipstick Negative /ul (Negative); Nitrite-Dipstick Negative (Negative); Occult Blood-Urine Negative /ul (Negative); Protein-Dipstick Negative (Negative); Specific Gravity, Urine 1.015 (1.002-1.030); Urine Bilirubin Dipstick Negative (Negative); Urine Clarity Clear (Clear); Urine Urobilinogen Normal (Normal); Urine pH 6.5 (5.0 - 8.0)
[2018-10-01] MEDS: Ketorolac 30 MG/ML Syringe IV (18:16)
[2018-10-01] MEDS: Ondansetron 4 MG/2 ML Vial IV (18:16)
--- NOTE | 2018-10-01 18:40 | RAD_ITS ---
STUDY: X-RAY CHEST REASON FOR EXAM: Female, 18 years old. Chest pain TECHNIQUE: Frontal and lateral views of the chest COMPARISON: 09/23/2018 FINDINGS: The lungs are clear. There are no pleural effusions. There is no pneumothorax. The heart is normal in size. The visualized osseous structures are within normal limits. RAD/Chest PA and Lateral IMPRESSION: No acute thoracic pathology. Electronically Signed: Eren Bean, at 18:50 EDT Tel , Service support ,
[2018-10-01 18:44] LABS: Internal QC Validated? YES +Cl - CLEAR BKGD; Pregnancy, Serum, hCG Quali. NEGATIVE Negative
[2018-10-01 19:13] LABS: Hyaline Cast 0-5 SEEN /lpf (0-5); Squamous Epithelial Cells - UA 0-5 SEEN /hpf (5-10)
[2018-10-01 19:41] VITALS: BP 110/56; PULSE 70; RESP 16; O2SAT 99
[2018-10-01 21:17] VITALS: BP 112/60; PULSE 72; RESP 16; O2SAT 98
[2018-10-01 21:19] VITALS: BP 112/70; PULSE 72; RESP 16; O2SAT 98
--- NOTE | 2018-10-01 21:19 | ED.DEP ---
ED Disposition - Plan for ED Patient: Disposition: Home or Assisted Living Instructions: ED Abdominal Pain Unkn Cause Referrals: Raleigh Brink, [Primary Care Provider] - As soon as possible Additional Instructions: Tylenol and/or Motrin for pain. Follow-up with your doctor.
== END 2018-10-01 21:28 | disposition home or self-care (01) ==
PROVIDERS: Emergency Provider Emergency Medicine; Family Provider Family Medicine; PCP Family Medicine
DX: R07.9 Chest pain, unspecified (principal); R10.13 Epigastric pain
CPT/HCPCS: 71046; 80048; 81001; 84703; 85025; 85379; 93005; 96374; 96375; 99283; A4216; J2405

== ENCOUNTER 2018-10-23 10:08 | Emergency (ER) | payer MEDICAID, SELFPAY ==
[2018-10-23 10:08] VITALS: BP 118/71; PULSE 83; RESP 18; TEMP 36.5; O2SAT 99; BMI 31.3
--- NOTE | 2018-10-23 10:20 | EKG12_ITS ---
Test Reason : ABDOMINAL PAIN Blood Pressure : / mmHG Vent. Rate : 069 BPM Atrial Rate : 069 BPM P-R Int : 142 ms QRS Dur : 080 ms QT Int : 388 ms P-R-T Axes : 052 030 026 degrees QTc Int : 415 ms Normal sinus rhythm Low voltage QRS Borderline ECG Confirmed by VICKI FRENCH ([id number]), associate editor ISSA SEXTON ([id number]) on 10/28/2018 10:06:41 AM Referred By: DC Confirmed By:VICKI FRENCH
--- NOTE | 2018-10-23 10:20 | RAD_ITS ---
STUDY: X-RAY CHEST REASON FOR EXAM: Female, 18 years old. Chest pain. Abdominal pain. TECHNIQUE: Single AP portable view of the chest. COMPARISON: Comparison is made with prior study dated October 01, 2018. FINDINGS: The lungs are clear and expanded. There is no demonstrated pleural abnormality. Normal size heart. Normal mediastinum and saida. Normal visualized pulmonary arteries. Normal visualized aortic arch and descending thoracic aorta. Normal visualized thoracic spine. Normal visualized ribs, clavicles, and shoulders. There is no demonstrated abnormality of the visualized soft tissue structures of the upper abdomen. RAD/Chest 1 View (Portable) IMPRESSION: Normal x-ray examination of the chest. Electronically Signed: Coleman Tran, at 11:38 EDT , Service support ,
--- NOTE | 2018-10-23 10:22 | ED.DCSUM_ITS ---
- ER Visit Summary Date of Service: 10/23/18 Chief Complaint: Abdominal pain History of Present Illness: The patient is a 18 F with lower abdominal pain for about a week. The pain is in her lower hemiabdomen. It feels sharp. Associated with some dysuria and urinary frequency. She says her last menstrual period was just over a month ago. Denies any bleeding or discharge currently. Reports some nausea and constipation. She presents today because she was feeling lightheaded and dizzy. She felt like she might pass out. She said she is having some chest pain which also feels sharp. Denies shortness of breath or cough or any other associated symptoms. Denies any history of heart disease, lung disease, or blood clots. Denies travel, immobilization, or hospitalization. Denies any hormone medication use including control. Denies smoking. She has a history of ovarian cysts but has not required any procedures for them. She was treated previously with tramadol. She has a history of cholecystectomy. Physical Examination: Afebrile and vital signs unremarkable. Patient appears uncomfortable. Not toxic or in distress. Skin normal in color without jaundice, pallor, or diaphoresis. Heart regular. Lungs clear. Lower hemiabdomen is tender to palpation. No guarding or rebound. Extremities nontender with no edema. Test Results: Labs, urine, EKG, and chest x-ray pending. Emergency Department Course and Treatment: Patient presents with lower abdominal pain, urinary symptoms, vague GI symptoms, and a history of ovarian cysts. Will check blood work, urinalysis, and test. She is having some near syncope and chest pain today. Her exam, history, and vital signs are reassuring. She is PERC negative. I think her symptoms are more related to her lower abdominal pain and not a primary cardiac, vascular, or pulmonary etiology. Will check chest x-ray, EKG, and troponin to be cautious. Patient treated with fluids, morphine, and Zofran while awaiting results. EKG and chest x-ray unremarkable. Labs and urinalysis also unremarkable. Chest x-ray normal. Patient had continued pain, radiating to the back. She was treated with additional pain medicine and a CT was ordered. The CT showed a ruptured right ovarian cyst with pelvic free fluid. I believe this is causing her pain and other symptoms. Patient will be treated with high-dose ibuprofen. She has tolerated this in the past. We will also prescribe Zofran. She will follow-up with her DARKRO[employer] TECHNICIAN. Treatment Plan: As above Disposition: Discharge Impression: 1. Right ovarian cyst This note was generated with [employer] dictation software. It may contain incorrect words, spelling, and punctuation that were not noted in review of the chart prior to signing ED Disposition - Plan for ED Patient: Referrals: Raleigh Brink DO [Primary Care Provider] -
[2018-10-23] MEDS: Ondansetron 4 MG/2 ML Vial IV (10:51)
[2018-10-23] MEDS: 0.9% Normal Saline 1,000 ML 1000 ML IV (10:51)
[2018-10-23] MEDS: Morphine 4 MG/ML Syringe IV ×2 (10:52→11:42)
[2018-10-23 11:07] LABS: Mucous, Urine 0 SEEN /hpf (<or=2+); Red Blood Cells-Urine 0 SEEN /hpf (0-5); Squamous Epithelial Cells - UA 0 SEEN /hpf (5-10)
[2018-10-23 11:14] LABS: Absolute Lymphocyte Count 2.01 X10^3/ul (0.83-4.51); Absolute Neutrophil Count 2.6 X10^3/uL (2.0-7.7); Basophil# 0.02 X10^3/uL; Basophil% 0.4 % (0-1); Eosinophil# 0.09 X10^3/uL; Eosinophils% 1.8 % (0-5); Hematocrit 37.5 % (37-47); Hemoglobin 12.5 g/dl (12.0-15.0); Lymphocyte # 2.01 X10^3/ul (4.0); Lymphocyte % 39.3 % (19-41); Mean Corp Hgb Conc 33.3 g/gl (32-36); Mean Corpuscular Hgb 29.7 pg (27.0-32.0); Mean Corpuscular Volume 89.1 fL (81-99); Mean Platelet Vol. 10.1 fl (6.2-12.0); Monocyte% 7.8 % (0-10); Neutrophil # 2.59 X10^3/uL (2.7-7.7); Neutrophil % 50.7 % (47-70); Platelet Count 249 K/mm3 (150-450); RBC Distribution Width CV 12.7 % (11.6-14.6); RBC Distribution Width SD 40.5 fl (35.1-43.9); Red Blood Count 4.21 M/mm3 (4.2-5.4); White Blood Count 5.1 K/mm3 (4.4-11.0)
[2018-10-23 11:15] LABS: POSITIVE COUNT NO; POSITIVE DIFFERENTIAL NO; POSITIVE MORPHOLOGY NO
[2018-10-23 11:15] LABS: Color, Urine Yellow (Yellow); Glucose, Dipstick Normal (Normal); Ketone-Dipstick Negative (Negative); Leukocyte Esterase-Dipstick 25 /ul (Negative); Nitrite-Dipstick Negative (Negative); Occult Blood-Urine Negative /ul (Negative); Protein-Dipstick Negative (Negative); Urine Bilirubin Dipstick Negative (Negative); Urine Clarity Sl. Cloudy (Clear); Urine Urobilinogen Normal (Normal)
[2018-10-23 11:18] LABS: Internal QC Validated? YES +Cl - CLEAR BKGD; Pregnancy, Urine Negative Negative
[2018-10-23 11:24] LABS: Bacteria 1+ /hpf (None Seen); White Blood Cells 0-5 SEEN /hpf (0-5)
[2018-10-23 11:28] LABS: AST(SGOT) 22 U/L (15-37); Alanine Aminotransfer ALT/SGPT 32 U/L (13-56); Albumin, Serum 3.6 g/dL (3.2-5.0); Alkaline Phosphatase 48 U/L (45-117); Anion Gap 6 (5-15); BUN 13 mg/dL (7-18); BUN/Creat Ratio 17.2 RATIO (10-20); Calcium,Total 8.4 mg/dL (8.5-10.1); Chloride 104 mmol/L (98-107); Creatinine, Serum 0.76 mg/dL (0.55-1.02); EST Glomerular Filtration Rate 103 mL/min (>60); Est Glom Filt Rate - Afr Amer 125 mL/min (>60); Estimated Creatinine Clearance 93.39 ml/min; Globulin 3.5 g/dL (2.2-4.2); Glucose 87 mg/dL (74-106); Lipase 69 U/L (73-393); Potassium 3.7 mmol/L (3.5-5.1); Protein, Total 7.1 g/dL (6.4-8.2); Sodium Level 138 mmol/L (136-145)
--- NOTE | 2018-10-23 11:37 | CT_ITS ---
STUDY: CT ABDOMEN AND PELVIS WITHOUT CONTRAST REASON FOR EXAM: Female, 18 years old. One week history of lower abdominal pain and nausea. RADIATION DOSAGE (If Supplied By Facility): CTDIvol = ( 13.89 ) mGy, DLP = ( 936.60 ) mGycm TECHNIQUE: Transaxial images were obtained from the dome of the diaphragm to the symphysis pubis without oral contrast, and without intravenous contrast. Sagittal and coronal images were reconstructed. Individualized dose optimization techniques were used for this CT. COMPARISON: Comparison is made with prior study dated May 21, 2018. FINDINGS: The visualized lung bases are unremarkable. The visualized portions of the heart are within normal limits. There is prominence of the periportal tracts. The patient is status post cholecystectomy. Normal spleen. Normal pancreas. Normal bilateral adrenal glands. Normal right kidney. Normal left kidney. Normal visualized stomach. Normal small intestine. Normal colon. The appendix is visualized and appears normal. Normal abdominal aorta. Normal inferior vena cava. Normal retroperitoneum. Normal urinary bladder. Minimal amount of fluid is seen in the cul-de-sac. Findings suggestive of a ruptured right ovarian cyst. The right ovary measures 3.9 cm x 2.1 cm. Follicles are seen in the left ovary. There is prominence of the endometrium. Normal abdominal wall. Normal osseous structures. CT/Abdomen/Pelvis W IV Cont ONLY IMPRESSION: Small amount of fluid in the pelvis. Findings suggestive of a ruptured right ovarian cyst. Electronically Signed: Coleman Tran, at 12:24 EDT , Service support ,
--- NOTE | 2018-10-23 12:44 | ED.DEP ---
ED Disposition - Plan for ED Patient: Instructions: Ovarian Cyst Prescriptions: Ibuprofen 800 mg PO TID PRN PRN #20 tab PRN Reason: Pain Prescription Printed Ondansetron [Zofran Odt] 4 mg PO Q8H PRN PRN #10 tab PRN Reason: Nausea Prescription Printed Referrals: Asuncion Garcia MD [STAFF PHYSICIAN] -
[2018-10-23 13:15] VITALS: BP 119/59; PULSE 66; RESP 18
== END 2018-10-23 13:17 | disposition home or self-care (01) ==
LOC: ED 10:31
PROVIDERS: Emergency Provider Emergency Medicine; Family Provider Family Medicine; PCP Family Medicine
DX: N83.201 Unspecified ovarian cyst, right side (principal); Z90.49 Acquired absence of other specified parts of digestive tract
CPT/HCPCS: 71045; 74177; 80053; 81001; 81025; 83690; 84484; 85025; 93005; 96361; 96374; 96375; 96376; 99284; Q9967; A4216; J2405

== ENCOUNTER 2018-11-04 11:42 | Emergency (ER) | payer MEDICAID, SELFPAY ==
[2018-11-04 11:45] VITALS: BP 108/65; PULSE 78; RESP 18; TEMP 36.3; O2SAT 98; BMI 29.7
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
[2018-11-04] MEDS: morphine 8 MG/ML Syringe SC (12:11)
[2018-11-04] MEDS: Ondansetron 8 MG Tablet PO (12:11)
[2018-11-04 13:46] VITALS: PULSE 62; RESP 14; O2SAT 98
== END 2018-11-04 13:53 | disposition home or self-care (01) ==
PROVIDERS: Emergency Provider Emergency Medicine; Family Provider Family Medicine; PCP Family Medicine
DX: S09.90XA Unspecified injury of head, initial encounter (principal); W22.8XXA Striking against or struck by other objects, initial encounter; Y93.89 Activity, other specified; Y92.9 Unspecified place or not applicable; R51 Headache
CPT/HCPCS: 70450; 96372; 99282

== ENCOUNTER 2018-11-21 16:26 | Emergency (ER) | payer MEDICAID, SELFPAY ==
[2018-11-21 16:30] VITALS: BP 123/76; PULSE 71; RESP 18; TEMP 37.2; O2SAT 100; BMI 26.5
--- NOTE | 2018-11-21 17:39 | RAD_ITS ---
STUDY: X-RAY CHEST REASON FOR EXAM: Female, 18 years old. Cough and shortness of breath TECHNIQUE: PA and lateral views of the chest. COMPARISON: None. FINDINGS: The lungs are clear and expanded. There is no demonstrated pleural abnormality. Normal size heart. Normal mediastinum and saida. Normal visualized pulmonary arteries. Normal visualized aortic arch and descending thoracic aorta. Normal visualized thoracic spine. Normal visualized ribs, clavicles, and shoulders. There is no demonstrated abnormality of the visualized soft tissue structures of the upper abdomen. RAD/Chest PA and Lateral IMPRESSION: Normal x-ray examination of the chest. Electronically Signed: Navin Andrade DO at 18:46 EDT Tel , Service support ,
--- NOTE | 2018-11-21 17:39 | CT_ITS ---
STUDY: CT BRAIN WITHOUT CONTRAST REASON FOR EXAM: Female, 18 years old. Headache and dizziness RADIATION DOSAGE (If Supplied By Facility): CTDIvol = ( 44.99 ) mGy, DLP = ( 745.49 ) mGycm TECHNIQUE: Transaxial CT imaging of the brain was performed without administration of intravenous contrast material. Individualized dose optimization techniques were used for this CT. COMPARISON: November 04, 2018 FINDINGS: Normal soft tissue structures. Normal calvarium. Normal size ventricles and extra-axial spaces for the patient's age. Normal white matter tracts of the cerebral hemispheres. Normal basal ganglia and thalami. Normal brainstem. Normal cerebellum. There is no intracranial hemorrhage. There are no findings of an acute ischemic infarction. Normal visualized paranasal sinuses. CT/Brain/Head without Contrast IMPRESSION: Normal unenhanced CT scan of the brain. Electronically Signed: Navin Andrade DO at 18:46 EDT Tel , Service support ,
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
[2018-11-21 18:05] LABS: Bacteria 0 SEEN /hpf (None Seen); Mucous, Urine 0 SEEN /hpf (<or=2+); Red Blood Cells-Urine 0 SEEN /hpf (0-5)
[2018-11-21] MEDS: Ondansetron ODT 4 MG Tablet 8 MG PO (18:08)
[2018-11-21 18:09] LABS: Color, Urine Yellow (Yellow); Glucose, Dipstick Normal (Normal); Ketone-Dipstick Negative (Negative); Leukocyte Esterase-Dipstick 25 /ul (Negative); Nitrite-Dipstick Negative (Negative); Occult Blood-Urine Negative /ul (Negative); Protein-Dipstick Negative (Negative); Urine Bilirubin Dipstick Negative (Negative); Urine Clarity Clear (Clear); Urine Urobilinogen Normal (Normal)
[2018-11-21] MEDS: Ketorolac 60 MG/2 ML Vial IM (18:09)
[2018-11-21 18:16] LABS: Internal QC Validated? YES +Cl - CLEAR BKGD; Squamous Epithelial Cells - UA 5-10 SEEN /hpf (5-10); White Blood Cells 0-5 SEEN /hpf (0-5)
[2018-11-21 18:17] LABS: Pregnancy, Urine Negative Negative
[2018-11-21 19:21] VITALS: BP 126/74; PULSE 61; RESP 15; O2SAT 98
== END 2018-11-21 19:26 | disposition home or self-care (01) ==
PROVIDERS: Emergency Provider Emergency Medicine; Family Provider Family Medicine; PCP Family Medicine
DX: S09.90XA Unspecified injury of head, initial encounter (principal); J40 Bronchitis, not specified as acute or chronic; N83.201 Unspecified ovarian cyst, right side; W22.8XXA Striking against or struck by other objects, initial encounter; Y93.9 Activity, unspecified; Y92.9 Unspecified place or not applicable
CPT/HCPCS: 70450; 71046; 81001; 81025; 96372; 99283

== ENCOUNTER 2018-11-26 12:06 | Emergency (ER) | payer MEDICAID, SELFPAY ==
[2018-11-26 12:07] VITALS: BP 121/71; PULSE 82; RESP 15; TEMP 36.7; O2SAT 100; BMI 26.5
--- NOTE | 2018-11-26 12:32 | ED.DCSUM_ITS ---
- ER Visit Summary Date of Service: 11/26/18 Chief Complaint: Nausea, everything hurts History of Present Illness: The patient is a 18 F who presents with multiple symptoms. She states that she has pain everywhere. This includes her chest, abdomen. She states that she feels like passing out. She feels nauseous but has not vomited. She denies any diarrhea. She did not take her temperature at home. She does admit to dysuria at home as well. She was seen here last week and had a negative urinalysis and was discharged home. She has been seen here multiple times this year for various complaints. She does have a history of ovarian cyst as well. Denies any vaginal bleeding or discharge. Physical Examination: Vital signs reviewed. HEENT exam unremarkable. Heart is regular rate and rhythm without murmurs. Lungs are clear to auscultation. Abdomen is soft with mild diffuse tenderness. Extremities reveal no edema. Skin exam normal. Neurologic exam normal. Test Results: Laboratory studies are normal Emergency Department Course and Treatment: The patient was given Toradol and saline. She states she feels improved but still has a little bit of abdominal pain. I do not see any acute causes for her pain. Patient will be discharged with Bentyl. We will follow-up with her PCP Treatment Plan: [] Disposition: Discharge Impression: Abdominal pain This note was generated with [employer] dictation software. It may contain incorrect words, spelling, and punctuation that were not noted in review of the chart prior to signing ED Disposition - Plan for ED Patient: Referrals: Raleigh Brink DO [Primary Care Provider] -
[2018-11-26] MEDS: 0.9% Normal Saline 1,000 ML 1000 ML IV (12:45)
[2018-11-26] MEDS: Ketorolac 30 MG/ML Syringe IV (12:45)
--- NOTE | 2018-11-26 12:50 | EKG12_ITS ---
Test Reason : CP Blood Pressure : / mmHG Vent. Rate : 069 BPM Atrial Rate : 069 BPM P-R Int : 150 ms QRS Dur : 082 ms QT Int : 378 ms P-R-T Axes : 052 028 026 degrees QTc Int : 405 ms Normal sinus rhythm Low voltage QRS Borderline ECG Confirmed by VICKI FRENCH ([id number]), map editor MARIZOL ALBERT ([id number]) on 11/28/2018 9:57:47 AM Referred By: IGNACIO Confirmed By:VICKI FRENCH
[2018-11-26 12:51] LABS: Absolute Lymphocyte Count 2.16 X10^3/uL (0.83-4.51); Absolute Neutrophil Count 2.8 X10^3/uL (2.0-7.7); Bacteria 0 SEEN /hpf (None Seen); Basophil# 0.03 X10^3/uL; Basophil% 0.5 % (0-1); Eosinophils% 1.8 % (0-5); Hematocrit 38.9 % (37-47); Lymphocyte # 2.16 X10^3/ul (4.0); Lymphocyte % 38.6 % (19-41); Mean Corp Hgb Conc 33.4 g/dL (32-36); Mean Corpuscular Hgb 30.2 pg (27.0-32.0); Mean Corpuscular Volume 90.5 fL (81-99); Mean Platelet Vol. 9.4 fl (6.2-12.0); Monocyte# 0.47 X10^3/uL; Monocyte% 8.4 % (0-10); Mucous, Urine 0 SEEN /hpf (<or=2+); NRBC Flagged by Analyzer 0 % (0-5); Neutrophil # 2.82 X10^3/uL (2.7-7.7); Neutrophil % 50.5 % (47-70); Platelet Count 232 K/mm3 (150-450); RBC Distribution Width SD 39.5 fl (35.1-43.9); Red Blood Cells-Urine 0 SEEN /hpf (0-5); Squamous Epithelial Cells - UA 0 SEEN /hpf (5-10); White Blood Cells 0 SEEN /hpf (0-5); White Blood Count 5.6 K/mm3 (4.4-11.0)
[2018-11-26 12:58] LABS: Internal QC Validated? YES +Cl - CLEAR BKGD; Pregnancy, Urine Negative Negative
[2018-11-26 13:11] LABS: AST(SGOT) 16 U/L (15-37); Alanine Aminotransfer ALT/SGPT 32 U/L (13-56); Albumin, Serum 3.6 g/dL (3.2-5.0); Alkaline Phosphatase 62 U/L (45-117); Anion Gap 5 (5-15); BUN 20 mg/dL (7-18); BUN/Creat Ratio 25.1 RATIO (10-20); Calcium,Total 8.7 mg/dL (8.5-10.1); Chloride 106 mmol/L (98-107); EST Glomerular Filtration Rate 97 mL/min (>60); Est Glom Filt Rate - Afr Amer 117 mL/min (>60); Estimated Creatinine Clearance 88.72 ml/min; Globulin 3.5 g/dL (2.2-4.2); Glucose 74 mg/dL (74-106); Lipase 97 U/L (73-393); Potassium 3.6 mmol/L (3.5-5.1); Protein, Total 7.1 g/dL (6.4-8.2); Sodium Level 137 mmol/L (136-145)
[2018-11-26 13:22] LABS: Color, Urine Straw (Yellow); Glucose, Dipstick Normal (Normal); Ketone-Dipstick Negative (Negative); Leukocyte Esterase-Dipstick 25 /ul (Negative); Nitrite-Dipstick Negative (Negative); Occult Blood-Urine Negative /ul (Negative); Protein-Dipstick Negative (Negative); Urine Bilirubin Dipstick Negative (Negative); Urine Clarity Clear (Clear); Urine Urobilinogen Normal (Normal); Urine pH 6.5 (5.0 - 8.0)
--- NOTE | 2018-11-26 13:58 | ED.DEP ---
ED Disposition - Plan for ED Patient: Disposition: Home or Assisted Living Instructions: ABDOMINAL PAIN, Unknown Cause, (Female) Prescriptions: Dicyclomine HCl [Bentyl] 20 mg PO TIDAC #20 cap Prescription Printed Referrals: Raleigh Brink DO [Primary Care Provider] -
[2018-11-26 14:05] VITALS: BP 116/74; PULSE 61; RESP 15; O2SAT 99
== END 2018-11-26 14:06 | disposition home or self-care (01) ==
PROVIDERS: Emergency Provider Emergency Medicine; Family Provider Family Medicine; PCP Family Medicine
DX: R10.9 Unspecified abdominal pain (principal); R11.0 Nausea; N83.209 Unspecified ovarian cyst, unspecified side
CPT/HCPCS: 80053; 81001; 81025; 83690; 85025; 93005; 96361; 96374; 99283; J7030; A4216

== ENCOUNTER 2018-12-10 16:04 | Emergency (ER) | payer MEDICAID, SELFPAY ==
[2018-12-10 16:05] VITALS: BP 109/68; PULSE 82; RESP 16; TEMP 36.4; O2SAT 100; BMI 26.5
[2018-12-10 17:39] LABS: Absolute Lymphocyte Count 2.16 X10^3/uL (0.83-4.51); Absolute Neutrophil Count 2.9 X10^3/uL (2.0-7.7); Basophil# 0.03 X10^3/uL; Basophil% 0.5 % (0-1); Eosinophil# 0.11 X10^3/uL; Eosinophils% 1.9 % (0-5); Hematocrit 38.5 % (37-47); Hemoglobin 12.7 g/dL (12.0-15.0); Lymphocyte # 2.16 X10^3/ul (4.0); Lymphocyte % 37.8 % (19-41); Mean Corpuscular Hgb 30.4 pg (27.0-32.0); Mean Corpuscular Volume 92.1 fL (81-99); Mean Platelet Vol. 9.7 fl (6.2-12.0); Monocyte% 8.8 % (0-10); NRBC Flagged by Analyzer 0 % (0-5); Neutrophil % 50.8 % (47-70); Platelet Count 264 K/mm3 (150-450); RBC Distribution Width CV 11.9 % (11.6-14.6); RBC Distribution Width SD 40.5 fl (35.1-43.9); Red Blood Count 4.18 M/mm3 (4.2-5.4); White Blood Count 5.7 K/mm3 (4.4-11.0)
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
[2018-12-10 17:54] LABS: Anion Gap 5 (5-15); BUN 23 mg/dL (7-18); BUN/Creat Ratio 31.1 RATIO (10-20); Calcium,Total 8.8 mg/dL (8.5-10.1); Chloride 104 mmol/L (98-107); Creatinine, Serum 0.74 mg/dL (0.55-1.02); EST Glomerular Filtration Rate 106 mL/min (>60); Est Glom Filt Rate - Afr Amer 128 mL/min (>60); Estimated Creatinine Clearance 95.91 ml/min; Glucose 85 mg/dL (74-106); Potassium 3.5 mmol/L (3.5-5.1); Sodium Level 138 mmol/L (136-145)
[2018-12-10] MEDS: 0.9% Normal Saline 1,000 ML 1000 ML IV (18:11)
[2018-12-10] MEDS: Ondansetron 4 MG/2 ML Vial IV (18:11)
[2018-12-10 18:26] LABS: Bacteria 0 SEEN /hpf (None Seen); Mucous, Urine 0 SEEN /hpf (<or=2+); White Blood Cells 0 SEEN /hpf (0-5)
[2018-12-10 18:28] LABS: AST(SGOT) 23 U/L (15-37); Alanine Aminotransfer ALT/SGPT 40 U/L (13-56); Albumin, Serum 3.7 g/dL (3.2-5.0); Alkaline Phosphatase 61 U/L (45-117); Bilirubin, Direct 0.08 mg/dL (0.00-0.30); Globulin 3.4 g/dL (2.2-4.2); Protein, Total 7.1 g/dL (6.4-8.2)
[2018-12-10 18:30] LABS: hCG Titer Quant., Serum < 1 mIU/mL (1-3)
[2018-12-10 18:35] LABS: Color, Urine Yellow (Yellow); Glucose, Dipstick Normal (Normal); Ketone-Dipstick Negative (Negative); Leukocyte Esterase-Dipstick 25 /ul (Negative); Nitrite-Dipstick Negative (Negative); Occult Blood-Urine Negative /ul (Negative); Protein-Dipstick Negative (Negative); Urine Bilirubin Dipstick Negative (Negative); Urine Clarity Clear (Clear); Urine Urobilinogen Normal (Normal)
[2018-12-10 18:42] LABS: Red Blood Cells-Urine 0-5 SEEN /hpf (0-5); Squamous Epithelial Cells - UA 0-5 SEEN /hpf (5-10)
[2018-12-10 19:27] VITALS: BP 110/87; PULSE 87; RESP 16; O2SAT 100
== END 2018-12-10 19:28 | disposition home or self-care (01) ==
PROVIDERS: Emergency Provider Emergency Medicine; Family Provider Family Medicine; PCP Family Medicine
DX: R10.9 Unspecified abdominal pain (principal); R11.0 Nausea; R30.0 Dysuria; F32.9 Major depressive disorder, single episode, unspecified; F41.9 Anxiety disorder, unspecified; Z90.49 Acquired absence of other specified parts of digestive tract; Z79.899 Other long term (current) drug therapy
CPT/HCPCS: 80048; 80076; 81001; 84702; 85025; 96361; 96374; 99283; J7030; A4216; J2405

== ENCOUNTER 2018-12-17 20:04 | Emergency (ER) | payer MEDICAID, SELFPAY ==
[2018-12-17 20:05] VITALS: BP 114/73; PULSE 78; RESP 14; TEMP 36.7; O2SAT 99; BMI 31.7
--- NOTE | 2018-12-17 20:14 | ED.DCSUM_ITS ---
History of Present Illness Chief Complaint: Chest Pain Detail of Chief Complaint: Runny nose, earache, sore throat and cough as well Informant: Patient Onset: Weeks - 1 to 2 weeks Context: Sudden Onset Timing: Intermittent Quality: URI symptoms Location: Upper respiratory, left anterior chest Current Severity: Mild Maximum Severity: Moderate Worsened by: Nothing Relieved by: Nothing Associated Symptoms: Viral respiratory symptoms and headache Narrative: Patient is a 18-year-old female who presents with global headache without photophobia or neck pain/stiffness. She reports runny nose, earache, postnasal drainage and sore throat. She has a cough which is nonproductive. She denies nausea or vomiting. She denies urologic symptoms. She denies myalgias arthralgias. She denies rash. She denies fever chills. The pain is sharp. The pain is predominantly on the left side. 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 Past Medical History - Allergies and Home Meds Allergies/Adverse Reactions: Allergies azithromycin [From Zithromax] Allergy (Verified 12/17/18 20:09) Other NAUSEA, DIZZINESS, CHEST PAIN naproxen [From Aleve] Allergy (Verified 12/17/18 20:09) Other Primary Care Physician: Raleigh Brink DO [Primary Care Provider] - Prior records reviewed: No Surgical History: no surgical history Lives: Alone Smoking Status: Never smoker Alcohol: None Drugs: None Review of Systems General: Denies: Chills, Fever, Malaise, Subjective, Sweats, Weight loss, - Eyes: Denies: Visual changes - bilaterally, Blurred Vision - bilaterally ENT: Reports: Bilateral ear pain, Rhinorrhea, Sore throat Cardiovascular: Reports: Chest pain. Denies: Palpitations, Heart racing Respiratory: Reports: Cough. Denies: Dyspnea, Sputum, Dyspnea on exertion Gastrointestinal: Reports: Nausea. Denies: Abdominal pain, Vomiting, Diarrhea, Constipation, Melena, Hematochezia Genitourinary: Denies: Dysuria, Hematuria, Frequency Musculoskeletal: Reports: Myalgias, Arthralgias. Denies: Neck pain, Back pain, Swelling, Extremity Pain Skin: Denies: Rash, Wounds Neurological: Reports: Headache. Denies: Weakness, Parasthesia, Numbness Endocrine: Denies: Polyuria, Polydipsia Hematologic: Denies: Easy bruising, Easy bleeding Allergy: Denies: Uticaria, Swelling of the mouth, Swelling of the tongue Physical Exam Vital Signs/Narrative: Vital Signs Temp Pulse Resp BP Pulse Ox 12/17/18 20:05 98.1 F 78 14 114/73 99 Inital Vital Signs reviewed: Yes General: Well nourished, Well developed, No Acute Distress Head: Normocephalic, Atraumatic Eyes: Perrl, EOMI ENT: Moist mucous membranes, TM's clear, Nasal congestion. Negative for: Sinus tenderness Neck: Supple, Nontender, No lymphadenopathy, No JVD Cardiovascular: Regular rate, Regular rhythm, No murmurs, Normal S1, Normal S2 Respiratory: No distress, CTA bilaterally, Chest nontender Abdomen: Soft, Nontender, Nondistended, Normal bowel sounds, No masses Back: Nontender, Normal Inspection. Negative for: CVA tenderness, Spinal tenderness Extremities: Nontender, No edema Skin: Normal color, No rash, No Trauma. Negative for: Cyanosis, Diaphoresis, Jaundice Neurological: Alert, Oriented x3, Cranial nerves II-XII grossly intact, Normal Strength, Normal Sensation, Normal DTR, Normal Gait Psychological: Normal affect, Normal Mood Diagnostic/Tx/Re-eval - Medical Decision Making She has reproducible pain fourth fifth intercostal space. History and physical exam is concerning with upper restaurant infection. Patient was treated with Naprosyn and nasal spray. Laboratory testing and imaging is not indicated. ED Disposition - Plan for ED Patient: Disposition: Home or Assisted Living Diagnosis: Costochondritis, acute, Viral upper respiratory tract infection with cough Instructions: CHEST WALL PAIN, Costochondritis, URI, Viral, No Abx (Adult) Prescriptions: Naproxen [Naprosyn] 500 mg PO BID #14 tab Transmission Status: Pending to [facility] #30 Phenylephrine 0.25% [Jamie-Synephrine] 1 spray NASAL Q6H PRN PRN #1 nasal.sry PRN Reason: Runny nose and congestion Transmission Status: Pending to [facility] Referrals: Raleigh Brink, [Primary Care Provider] - 10-14 Days if not better Additional Instructions: Prescription was electronically transmitted to [facility].
[2018-12-17 20:19] VITALS: BP 108/80; PULSE 63; PULSE 67; RESP 20; TEMP 36.7; O2SAT 100
[2018-12-17] MEDS: Naproxen 250 MG Tablet 500 MG PO (20:26)
== END 2018-12-17 21:02 | disposition home or self-care (01) ==
LOC: ED 20:40
PROVIDERS: Emergency Provider Emergency Medicine; Family Provider Family Medicine; PCP Family Medicine
DX: M94.0 Chondrocostal junction syndrome [Tietze] (principal); J06.9 Acute upper respiratory infection, unspecified
CPT/HCPCS: 99284

== ENCOUNTER 2018-12-27 09:00 | Emergency (ER) | payer MEDICAID, SELFPAY ==
[2018-12-27 09:02] VITALS: BP 106/69; PULSE 68; RESP 17; TEMP 37; O2SAT 99; BMI 31.1
[2018-12-27 09:07] VITALS: BP 106/69; PULSE 78; RESP 16; TEMP 37; O2SAT 97
--- NOTE | 2018-12-27 09:10 | ED.DCSUM_ITS ---
History of Present Illness Chief Complaint: Chest Pain Informant: Patient Onset: Today - Upper respiratory symptoms, Yesterday - Tooth and ear pain Context: Sudden Onset Timing: Continuous Quality: Pain Location: Right ear, right upper tooth and left anterior chest Current Severity: Mild Maximum Severity: Moderate Worsened by: Tooth worse with cold, chest worse with movement and breathing Relieved by: Nothing Associated Symptoms: Earache, sore throat, hoarse voice, nonproductive cough Narrative: Patient is a 18-year-old female whose last normal menstrual period was 3 weeks ago and presents with right ear pain, right upper tooth pain, sore throat, change in voice, nonproductive cough and anterior left chest pain. He also complains of nausea with abdominal discomfort. She denies dysuria, frequency, urgency or hematuria. She denies back or flank pain. She denies food intolerance. She is a non-smoker. She denies history of PE or DVT. She denies leg pain, swelling or discoloration. Prior similar symptoms: No Recent Illness/Hospitalization: No - Past Medical History (1) No significant past medical history Status: Acute Past Medical History - Allergies and Home Meds Allergies/Adverse Reactions: Allergies azithromycin [From Zithromax] Allergy (Verified 12/27/18 09:01) Other NAUSEA, DIZZINESS, CHEST PAIN naproxen [From Aleve] Allergy (Verified 12/27/18 09:01) Other Primary Care Physician: Raleigh Brink DO [Primary Care Provider] - Prior records reviewed: Yes - Complex right ovarian cyst Surgical History: no surgical history Lives: Alone Smoking Status: Never smoker Alcohol: None Drugs: None Review of Systems General: Reports: Malaise. Denies: Chills, Fever, Subjective, Sweats Eyes: Denies: Visual changes - bilaterally, Blurred Vision - bilaterally ENT: Reports: Right ear pain, Sore throat. Denies: Left ear pain, Rhinorrhea Cardiovascular: Reports: Chest pain. Denies: Palpitations, Heart racing Respiratory: Reports: Cough. Denies: Dyspnea, Sputum, Dyspnea on exertion Gastrointestinal: Reports: Abdominal pain, Nausea. Denies: Vomiting, Diarrhea, Constipation, Melena, Hematochezia Genitourinary: Denies: Dysuria, Hematuria, Frequency Musculoskeletal: Denies: Myalgias, Arthralgias, Neck pain, Back pain, Swelling, Extremity Pain, -, - Skin: Denies: Rash, Wounds Neurological: Reports: Weakness. Denies: Headache, Parasthesia, Numbness, -, - Hematologic: Denies: Easy bruising, Easy bleeding Allergy: Denies: Uticaria, Swelling of the mouth, Swelling of the tongue Physical Exam Vital Signs/Narrative: Vital Signs Temp Pulse Resp BP Pulse Ox 12/27/18 09:07 98.6 F 78 16 106/69 97 12/27/18 09:02 98.6 F 68 17 106/69 99 Inital Vital Signs reviewed: Yes General: Well nourished, Well developed, No Acute Distress Head: Normocephalic, Atraumatic. Negative for: Trauma Eyes: Perrl, EOMI. Negative for: Pale conjunctiva, Scleral icterus ENT: Moist mucous membranes, No rhinorrhea, TM's clear, - - Uvula is midline. There is no exudate. There is no evidence of angioedema. There is a large cavity/defect right upper first molar. There is no evidence of periodontal abscess. There is no facial cellulitis. There is no facial swelling.. Negative for: Nasal congestion, Sinus tenderness Neck: Supple, Nontender, No lymphadenopathy, No JVD Cardiovascular: Regular rate, Regular rhythm, No murmurs, Normal S1, Normal S2 Respiratory: No distress, CTA bilaterally, Chest tenderness - Left fourth fifth intercostal space Abdomen: Soft, Nontender - Intermittent left inguinal discomfort, Nondistended, Normal bowel sounds, No masses Back: Nontender, Normal Inspection. Negative for: CVA tenderness Extremities: Nontender, No edema, - - There is no asymmetry, swelling, discoloration, leg vein distention, palpable cords or tenderness along the distribution of the deep venous system. Skin: Normal color, No rash Neurological: Alert, Oriented x3, Cranial nerves II-XII grossly intact, Normal Strength, Normal Sensation, Normal Gait Psychological: Normal affect, Normal Mood Diagnostic/Tx/Re-eval - Medical Decision Making Patient's cocci symptoms consistent with upper respiratory infection. She does have a large defect first right upper molar. Probably has an apical abscess. There is no evidence of periodontal abscess or fistulization of apical abscess. There is no trismus. There is no evidence of facial cellulitis. This most likely is the cause of her right ear pain. Patient was treated with Zofran ODT, Naprosyn and Pen-Vee K. ED Disposition - Plan for ED Patient: Disposition: Home or Assisted Living Diagnosis: Viral URI with cough, Costochondritis, acute, Dental infection Instructions: Costochondritis, Dental Pain, URI, Viral, No Abx (Adult) Prescriptions: Naproxen [Naprosyn] 500 mg PO BID #14 tab Transmission Status: Pending to [facility] Penicillin V Potassium 500 mg PO 4X/DAY #40 tab Transmission Status: Pending to [facility] Referrals: Raleigh Brink, [Primary Care Provider] - 10-14 Days if not better Dasha Mata [NON-STAFF] - 3-5 Days Additional Instructions: Follow-up at [facility] to see dentist for tooth pain/infection. Your prescriptions were electronically transmitted to [facility].
[2018-12-27] MEDS: Ondansetron ODT 4 MG Tablet PO (09:23)
[2018-12-27] MEDS: Penicillin Vk 250 MG Tablet 500 MG PO (09:23)
[2018-12-27] MEDS: Naproxen 250 MG Tablet 500 MG PO (09:23)
== END 2018-12-27 09:34 | disposition home or self-care (01) ==
LOC: ED 09:24
PROVIDERS: Emergency Provider Emergency Medicine; Family Provider Family Medicine; PCP Family Medicine
DX: J06.9 Acute upper respiratory infection, unspecified (principal); M94.0 Chondrocostal junction syndrome [Tietze]; K04.7 Periapical abscess without sinus
CPT/HCPCS: 99283

== ENCOUNTER 2018-12-31 13:13 | Emergency (ER) | payer MEDICAID, SELFPAY ==
[2018-12-31 13:15] VITALS: BP 111/63; PULSE 78; RESP 16; TEMP 36.1; O2SAT 100; BMI 26.5
--- NOTE | 2018-12-31 13:29 | ED.DCSUM_ITS ---
- ER Visit Summary Date of Service: 12/31/18 Chief Complaint: Periumbilical abdominal pain History of Present Illness: The patient is a 18 F history of prior abdominal pain secondary to ovarian cyst. Also history of depression and anxiety. Which she is taking both Prozac and Xanax. She states that she had abdominal pain for the last 3 to 4 days. Similar to prior ovarian cyst. Last menstrual period was about a month ago. Denies any vaginal bleeding or discharge. No dysuria. No fever. No melena. She states she has some mild constipation but no diarrhea. No prior abdominal surgeries other than a cholecystectomy. Has nausea but no vomiting. Patient has had 2 prior abdominal pelvic CAT scans done within the last 8 months showing ovarian cysts. Physical Examination: Well-appearing young female. Vital signs are stable. She is afebrile. HEENT exam unremarkable. My treatment with. Neck nontender. Lungs positive bilateral. Heart regular rhythm no murmur. Abdomen soft. Nondistended. Normal bowel sounds no peritoneal signs. She has minimal periumbilical tenderness. Nothing specific in the right upper right lower quadrant. No hernias or masses. No signs of obstruction. Really no suprapubic or pelvic pain. Patient is all 4 extremities. Neurologically she is awake alert. Test Results: CBC normal white count 6. Normal H&H. Chemistries normal normal gap and creatinine. Liver enzymes and lipase normal. UA normal. Serum preg abby test negative. Patient has had prior CAT scan showing ovarian cyst. On repeat exam today her abdomen is benign. I do not think the risk benefit of additional radiation is warranted at this time. She denied discussed that this is most likely an ovarian cyst. She is comfortable with not being imaged. Emergency Department Course and Treatment: IV Zofran. Clinically her exam is benign. Screening labs will be obtained. Romberg test results. I am at 1455 she is doing well. There are no peritoneal signs. Treatment Plan: Tylenol and Motrin for pain. Follow-up if not improving return if worse. Disposition: Discharge Impression: Abdominal pain of uncertain etiology History of ovarian cysts This note was generated with [employer] software. It may contain incorrect words, spelling, and punctuation that were not noted in review of the chart prior to signing ED Disposition - Plan for ED Patient: Referrals: Raleigh Brink DO [Primary Care Provider] -
[2018-12-31 13:44] LABS: Absolute Lymphocyte Count 2.47 X10^3/uL (0.83-4.51); Absolute Neutrophil Count 3.4 X10^3/uL (2.0-7.7); Basophil# 0.04 X10^3/uL; Basophil% 0.6 % (0-1); Eosinophil# 0.09 X10^3/uL; Eosinophils% 1.4 % (0-5); Hematocrit 37.7 % (37-47); Hemoglobin 12.5 g/dL (12.0-15.0); Lymphocyte # 2.47 X10^3/ul (4.0); Lymphocyte % 37.9 % (19-41); Mean Corp Hgb Conc 33.2 g/dL (32-36); Mean Corpuscular Volume 90.6 fL (81-99); Mean Platelet Vol. 9.9 fl (6.2-12.0); Monocyte# 0.51 X10^3/uL; Monocyte% 7.8 % (0-10); NRBC Flagged by Analyzer 0 % (0-5); Neutrophil # 3.38 X10^3/uL (2.7-7.7); Platelet Count 252 K/mm3 (150-450); RBC Distribution Width CV 11.9 % (11.6-14.6); RBC Distribution Width SD 39.9 fl (35.1-43.9); Red Blood Count 4.16 M/mm3 (4.2-5.4); White Blood Count 6.5 K/mm3 (4.4-11.0)
[2018-12-31] MEDS: 0.9% Normal Saline 1,000 ML 1000 ML IV (13:55)
[2018-12-31 13:56] LABS: Internal QC Validated? YES +Cl - CLEAR BKGD; Pregnancy, Serum, hCG Quali. NEGATIVE Negative
[2018-12-31] MEDS: Ondansetron 4 MG/2 ML Vial IV (13:56)
[2018-12-31 14:01] LABS: AST(SGOT) 18 U/L (15-37); Alanine Aminotransfer ALT/SGPT 38 U/L (13-56); Albumin, Serum 3.8 g/dL (3.2-5.0); Alkaline Phosphatase 52 U/L (45-117); Anion Gap 5 (5-15); BUN 13 mg/dL (7-18); BUN/Creat Ratio 19.1 RATIO (10-20); Bilirubin, Direct 0.17 mg/dL (0.00-0.30); Calcium,Total 8.9 mg/dL (8.5-10.1); Chloride 105 mmol/L (98-107); Creatinine, Serum 0.68 mg/dL (0.55-1.02); EST Glomerular Filtration Rate 116 mL/min (>60); Est Glom Filt Rate - Afr Amer 141 mL/min (>60); Estimated Creatinine Clearance 104.37 ml/min; Globulin 3.7 g/dL (2.2-4.2); Glucose 82 mg/dL (74-106); Lipase 68 U/L (73-393); Potassium 3.5 mmol/L (3.5-5.1); Protein, Total 7.5 g/dL (6.4-8.2); Sodium Level 138 mmol/L (136-145)
[2018-12-31 14:16] LABS: Mucous, Urine 0 SEEN /hpf (<or=2+); Red Blood Cells-Urine 0 SEEN /hpf (0-5); White Blood Cells 0 SEEN /hpf (0-5)
[2018-12-31 14:20] LABS: Color, Urine Yellow (Yellow); Glucose, Dipstick Normal (Normal); Ketone-Dipstick Negative (Negative); Leukocyte Esterase-Dipstick 25 /ul (Negative); Nitrite-Dipstick Negative (Negative); Occult Blood-Urine Negative /ul (Negative); Protein-Dipstick Negative (Negative); Urine Bilirubin Dipstick Negative (Negative); Urine Clarity Sl. Cloudy (Clear); Urine Urobilinogen Normal (Normal)
[2018-12-31 14:30] LABS: Bacteria RARE /hpf (None Seen); Squamous Epithelial Cells - UA 0-5 SEEN /hpf (5-10)
--- NOTE | 2018-12-31 15:04 | ED.DEP ---
ED Disposition - Plan for ED Patient: Disposition: Home or Assisted Living Instructions: ABDOMINAL PAIN, Unknown Cause, (Female) Referrals: Raleigh Brink, [Primary Care Provider] - 3-5 Days if not improving Additional Instructions: Most likely pain caused by another ovarian cyst. All your labs were normal today. Including urinalysis. Tylenol Motrin for pain. Follow-up with your doctor if not improving or return if feeling worse.
[2018-12-31 15:10] VITALS: BP 118/62; PULSE 71; RESP 15; O2SAT 97
== END 2018-12-31 15:12 | disposition home or self-care (01) ==
PROVIDERS: Emergency Provider Emergency Medicine; Family Provider Family Medicine; PCP Family Medicine
DX: R10.33 Periumbilical pain (principal); F32.9 Major depressive disorder, single episode, unspecified; F41.9 Anxiety disorder, unspecified; Z87.42 Personal history of other diseases of the female genital tract; Z90.49 Acquired absence of other specified parts of digestive tract
CPT/HCPCS: 36415; 80048; 80076; 81001; 83690; 84703; 85025; 96361; 96374; 99285; J7030; A4216; J2405

== ENCOUNTER 2019-01-07 15:50 | Emergency (ER) | payer MEDICAID, SELFPAY ==
[2019-01-07 15:51] VITALS: BP 110/66; PULSE 80; RESP 18; TEMP 36.4; O2SAT 100; BMI 27.4
--- NOTE | 2019-01-07 16:08 | EKG12_ITS ---
Test Reason : HEAD INJURY Blood Pressure : / mmHG Vent. Rate : 060 BPM Atrial Rate : 060 BPM P-R Int : 148 ms QRS Dur : 080 ms QT Int : 396 ms P-R-T Axes : 045 027 017 degrees QTc Int : 396 ms Normal sinus rhythm Low voltage QRS Borderline ECG Confirmed by VICKI FRENCH ([id number]), social media editor ISSA SEXTON ([id number]) on 01/08/2019 1:37:43 PM Referred By: GIGI Confirmed By:VICKI FRENCH
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
--- NOTE | 2019-01-07 16:10 | RAD_ITS ---
STUDY: X-RAY CHEST REASON FOR EXAM: Female, 18 years old. Chest pain/pressure TECHNIQUE: PA and lateral views of the chest. COMPARISON: 11/21/2018 FINDINGS: The lungs are clear and expanded. There is no demonstrated pleural abnormality. Normal size heart. Normal mediastinum and saida. Normal visualized pulmonary arteries. Normal visualized aortic arch and descending thoracic aorta. Normal visualized thoracic spine. Normal visualized ribs, clavicles, and shoulders. There is no demonstrated abnormality of the visualized soft tissue structures of the upper abdomen. RAD/Chest 1 View (Portable) IMPRESSION: Normal x-ray examination of the chest. Electronically Signed: Ramses Nichole MD at 16:44 EDT , Service support ,
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
[2019-01-07] MEDS: 0.9% Normal Saline 1,000 ML 1000 ML IV (16:30)
[2019-01-07] MEDS: Ondansetron 4 MG/2 ML Vial IV (16:30)
[2019-01-07 16:40] LABS: Absolute Lymphocyte Count 2.47 X10^3/uL (0.83-4.51); Absolute Neutrophil Count 2.2 X10^3/uL (2.0-7.7); Basophil# 0.06 X10^3/uL; Basophil% 1.1 % (0-1); Eosinophil# 0.14 X10^3/uL; Eosinophils% 2.6 % (0-5); Hematocrit 36.3 % (37-47); Lymphocyte # 2.47 X10^3/ul (4.0); Lymphocyte % 46.6 % (19-41); Mean Corp Hgb Conc 33.1 g/dL (32-36); Mean Corpuscular Hgb 30.3 pg (27.0-32.0); Mean Corpuscular Volume 91.7 fL (81-99); Mean Platelet Vol. 9.5 fl (6.2-12.0); Monocyte# 0.45 X10^3/uL; Monocyte% 8.5 % (0-10); NRBC Flagged by Analyzer 0 % (0-5); Neutrophil # 2.17 X10^3/uL (2.7-7.7); Platelet Count 275 K/mm3 (150-450); RBC Distribution Width CV 11.9 % (11.6-14.6); Red Blood Count 3.96 M/mm3 (4.2-5.4); White Blood Count 5.3 K/mm3 (4.4-11.0)
[2019-01-07 16:53] LABS: Internal QC Validated? YES +Cl - CLEAR BKGD; Pregnancy, Serum, hCG Quali. NEGATIVE Negative
[2019-01-07 17:02] LABS: D-Dimer Quantitative (DVT/PE) 0.38 FEU/ug/m (0.27-0.49)
[2019-01-07 17:04] LABS: ALB/GLOB Ratio 0.9 RATIO (0.9-2.4); AST(SGOT) 25 U/L (15-37); Alanine Aminotransfer ALT/SGPT 41 U/L (13-56); Albumin, Serum 3.4 g/dL (3.2-5.0); Alkaline Phosphatase 58 U/L (45-117); Anion Gap 4 (5-15); BUN 13 mg/dL (7-18); BUN/Creat Ratio 16.5 RATIO (10-20); Calcium,Total 8.5 mg/dL (8.5-10.1); Chloride 106 mmol/L (98-107); Creatinine, Serum 0.79 mg/dL (0.55-1.02); EST Glomerular Filtration Rate 99 mL/min (>60); Est Glom Filt Rate - Afr Amer 119 mL/min (>60); Estimated Creatinine Clearance 89.84 ml/min; Globulin 3.8 g/dL (2.2-4.2); Glucose 83 mg/dL (74-106); Lipase 55 U/L (73-393); Potassium 3.4 mmol/L (3.5-5.1); Protein, Total 7.2 g/dL (6.4-8.2); Sodium Level 140 mmol/L (136-145)
--- NOTE | 2019-01-07 17:42 | ED.DEP ---
ED Disposition - Plan for ED Patient: Instructions: CONCUSSION, No Wake Up Prescriptions: Ondansetron [Zofran Odt] 4 mg PO Q8H PRN PRN #10 tablet PRN Reason: Nausea Referrals: Raleigh Brink DO [Primary Care Provider] -
[2019-01-07 18:05] VITALS: BP 113/59; PULSE 59; RESP 14; O2SAT 100
== END 2019-01-07 18:07 | disposition home or self-care (01) ==
LOC: ED 16:12
PROVIDERS: Emergency Provider Emergency Medicine; Family Provider Family Medicine; PCP Family Medicine
DX: S09.90XA Unspecified injury of head, initial encounter (principal); W50.0XXA Accidental hit or strike by another person, initial encounter; Y93.89 Activity, other specified; Y92.9 Unspecified place or not applicable; R06.02 Shortness of breath; M79.602 Pain in left arm; R10.10 Upper abdominal pain, unspecified; R07.89 Other chest pain
CPT/HCPCS: 70450; 71045; 80053; 83690; 84484; 84703; 85025; 85379; 93005; 96361; 96374; 99284; J7030; J2405

== ENCOUNTER 2019-01-14 14:41 | Emergency (ER) | payer MEDICAID, SELFPAY ==
[2019-01-14 14:42] VITALS: BP 145/63; PULSE 83; RESP 16; TEMP 37.1; O2SAT 98; BMI 32.2
--- NOTE | 2019-01-14 15:13 | EKG12_ITS ---
Test Reason : ABD PAIN Blood Pressure : / mmHG Vent. Rate : 073 BPM Atrial Rate : 073 BPM P-R Int : 144 ms QRS Dur : 076 ms QT Int : 368 ms P-R-T Axes : 032 042 025 degrees QTc Int : 405 ms Normal sinus rhythm Normal ECG Confirmed by VICKI FRENCH ([id number]), primer expeditor and drier MARIZOL ALBERT ([id number]) on 01/20/2019 2:06:09 PM Referred By: LUIS Confirmed By:VICKI FRENCH
--- NOTE | 2019-01-14 15:17 | US_ITS ---
STUDY: ABDOMINAL ULTRASOUND - RIGHT UPPER QUADRANT REASON FOR VISIT: Female, 18 years old. Right upper quadrant pain TECHNIQUE: Ultrasound evaluation of the right upper quadrant was performed with real-time and static hudson-scale imaging. TECHNICAL QUALITY: Adequate. COMPARISON: CT scan 05/21/2018. FINDINGS: Liver: The liver measures 14.2 cm. There is normal echogenicity of the liver. The bile ducts are within normal limits. There is hepatic color flow. The direction of portal flow is hepatopetal. There is no demonstrated mass lesion. Gallbladder: The patient is status post cholecystectomy. Common Bile Duct (C.B.D.): The common bile duct measures 4 mm. Pancreas: Normal size of the head, body of the pancreas. Tail of the pancreas is suboptimally seen. There is normal echogenicity of the pancreas. There is no demonstrated pancreatic mass or cyst. Right Kidney: Normal size of the right kidney. The right kidney measures 10.4 cm. Normal renal cortex. The right cortex measures 1.2 cm. There is no demonstrated renal mass or cyst. There is no right hydronephrosis. US/Gallbladder IMPRESSION: Normal right upper quadrant ultrasound examination status post cholecystectomy. Electronically Signed: Aaron Scott MD at 16:34 EDT , Service support ,
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
[2019-01-14 15:33] LABS: Absolute Lymphocyte Count 2.33 X10^3/uL (0.83-4.51); Absolute Neutrophil Count 3.2 X10^3/uL (2.0-7.7); Basophil# 0.05 X10^3/uL; Basophil% 0.8 % (0-1); Eosinophil# 0.12 X10^3/uL; Eosinophils% 1.9 % (0-5); Hemoglobin 13.1 g/dL (12.0-15.0); Lymphocyte # 2.33 X10^3/ul (4.0); Lymphocyte % 37.1 % (19-41); Mean Corp Hgb Conc 32.8 g/dL (32-36); Mean Corpuscular Hgb 30.3 pg (27.0-32.0); Mean Corpuscular Volume 92.6 fL (81-99); Mean Platelet Vol. 9.2 fl (6.2-12.0); Monocyte# 0.62 X10^3/uL; Monocyte% 9.9 % (0-10); NRBC Flagged by Analyzer 0 % (0-5); Neutrophil # 3.16 X10^3/uL (2.7-7.7); Neutrophil % 50.3 % (47-70); Platelet Count 280 K/mm3 (150-450); RBC Distribution Width CV 11.9 % (11.6-14.6); RBC Distribution Width SD 40.7 fl (35.1-43.9); Red Blood Count 4.32 M/mm3 (4.2-5.4); White Blood Count 6.3 K/mm3 (4.4-11.0)
[2019-01-14 15:52] LABS: AST(SGOT) 34 U/L (15-37); Alanine Aminotransfer ALT/SGPT 66 U/L (13-56); Albumin, Serum 3.5 g/dL (3.2-5.0); Alkaline Phosphatase 64 U/L (45-117); Anion Gap 5 (5-15); BUN 13 mg/dL (7-18); BUN/Creat Ratio 15.6 RATIO (10-20); Bilirubin, Direct 0.12 mg/dL (0.00-0.30); Calcium,Total 8.8 mg/dL (8.5-10.1); Chloride 104 mmol/L (98-107); Creatinine, Serum 0.83 mg/dL (0.55-1.02); EST Glomerular Filtration Rate 92 mL/min (>60); Est Glom Filt Rate - Afr Amer 111 mL/min (>60); Estimated Creatinine Clearance 85.51 ml/min; Globulin 3.8 g/dL (2.2-4.2); Glucose 51 mg/dL (74-106); Lipase 74 U/L (73-393); Potassium 3.7 mmol/L (3.5-5.1); Protein, Total 7.3 g/dL (6.4-8.2); Sodium Level 139 mmol/L (136-145)
--- NOTE | 2019-01-14 16:20 | RAD_ITS ---
STUDY: X-RAY CHEST REASON FOR EXAM: Female, 18 years old. Abdominal pain. TECHNIQUE: Frontal and lateral views of the chest. COMPARISON: 01/07/2019. FINDINGS: The lungs are clear and expanded. There is no demonstrated pleural abnormality. Normal size heart. Normal mediastinum and saida. Normal visualized pulmonary arteries. Normal visualized aortic arch and descending thoracic aorta. Normal visualized thoracic spine. Normal visualized ribs, clavicles, and shoulders. There is no demonstrated abnormality of the visualized soft tissue structures of the upper abdomen. RAD/Chest PA and Lateral IMPRESSION: Normal x-ray examination of the chest. Electronically Signed: Aaron Scott MD at 16:35 EDT , Service support ,
[2019-01-14 16:25] LABS: Internal QC Validated? YES +Cl - CLEAR BKGD; Pregnancy, Urine Negative Negative
[2019-01-14 17:04] VITALS: BP 101/62; PULSE 86; RESP 16; O2SAT 100
[2019-01-14 17:21] LABS: Bacteria 0 SEEN /hpf (None Seen); Mucous, Urine 0 SEEN /hpf (<or=2+); Red Blood Cells-Urine 0 SEEN /hpf (0-5); White Blood Cells 0 SEEN /hpf (0-5)
[2019-01-14 17:25] LABS: Color, Urine Yellow (Yellow); Glucose, Dipstick Normal (Normal); Ketone-Dipstick Negative (Negative); Leukocyte Esterase-Dipstick Negative /ul (Negative); Nitrite-Dipstick Negative (Negative); Occult Blood-Urine Negative /ul (Negative); Protein-Dipstick Negative (Negative); Urine Bilirubin Dipstick Negative (Negative); Urine Clarity Clear (Clear); Urine Urobilinogen Normal (Normal)
[2019-01-14] MEDS: Mag Hydrox/Al Hydrox/Simeth 30 ML UDC PO (17:39)
[2019-01-14] MEDS: Ondansetron 4 MG/2 ML Vial IV (17:39)
[2019-01-14] MEDS: Acetaminophen 500 MG Tablet PO (17:39)
[2019-01-14 17:48] LABS: Squamous Epithelial Cells - UA 0-5 SEEN /hpf (5-10)
[2019-01-14 18:25] LABS: Chlamydia Trachomatis by PCR Negative (Negative); Neisserai gonorrhoeae by PCR Negative (Negative); Probe Check PASS; Sample Adequacy Control PASS; Specimen Processing Control PASS
[2019-01-14 18:54] VITALS: BP 96/73; PULSE 80; O2SAT 99
== END 2019-01-14 19:00 | disposition home or self-care (01) ==
PROVIDERS: Emergency Provider Emergency Medicine; Family Provider Family Medicine; PCP Family Medicine
DX: R10.13 Epigastric pain (principal); R10.11 Right upper quadrant pain; Z90.49 Acquired absence of other specified parts of digestive tract; G44.309 Post-traumatic headache, unspecified, not intractable; F07.81 Postconcussional syndrome; R07.9 Chest pain, unspecified; F32.9 Major depressive disorder, single episode, unspecified; Z79.899 Other long term (current) drug therapy
CPT/HCPCS: 71046; 76705; 80048; 80076; 81001; 81025; 83690; 84484; 85025; 87491; 87591; 93005; 96365; 96375; 99285; J2405

== ENCOUNTER 2019-01-28 10:23 | Emergency (ER) | payer MEDICAID, SELFPAY ==
[2019-01-28 10:24] VITALS: BP 90/60; PULSE 102; RESP 18; TEMP 36.4; O2SAT 99; BMI 27.4
--- NOTE | 2019-01-28 11:12 | ED.DCSUM_ITS ---
History of Present Illness Chief Complaint: Abd Pain Informant: Patient Onset: Month(s) - 2 Context: Gradual Onset Timing: Continuous Narrative: Is a 18-year-old female with history of ovarian cyst and possibly gastric ulcers presenting from home for worsening abdominal pain. Patient states her pain is in her epigastric and left upper quadrant. She states she has had this pain for the past 2 months but is been worsening over the past week or so. Patient is currently on omeprazole because her splitting machine feeder thinks she might have a stomach ulcer. Patient also states that she continues to have some shortness of breath and chest pain. She states she was diagnosed with pleurisy it is not changed. In addition over the past week she has had increased nasal congestion, headache, ear fullness and sore throat. She denies any sick contacts. She denies any fevers. She denies any productive cough. She denies any nausea or vomiting. She states she is intermittently constipated and then has normal bowel movemen ts. She states she has a bowel movement approximately every other day. She denies any blood in her stool. She states that she has had urinary frequency and burning over the past month or 2. Patient does not follow-up with her primary care doctor but has followed up with her [employer]. She denies any new or significant change in her symptoms today. Her last menstrual period was approximately 1 month ago. Past Medical History - Allergies and Home Meds Allergies/Adverse Reactions: Allergies azithromycin [From Zithromax] Allergy (Verified 01/28/19 10:26) Other NAUSEA, DIZZINESS, CHEST PAIN naproxen [From Aleve] Allergy (Verified 01/28/19 10:26) Other Primary Care Physician: Raleigh Brink DO [Primary Care Provider] - Surgical History: cholecystectomy Lives: With Family Smoking Status: Never smoker Review of Systems General: Reports: Malaise ENT: Reports: Bilateral ear pain, Sore throat, - - nasal congestion Cardiovascular: Reports: Chest pain - with deep breathing Gastrointestinal: Reports: Abdominal pain Genitourinary: Reports: Dysuria, Frequency Physical Exam Vital Signs/Narrative: Vital Signs Temp Pulse Resp BP Pulse Ox 01/28/19 10:24 97.6 F L 102 H 18 90/60 99 Inital Vital Signs reviewed: Yes General: Well nourished, Well developed, No Acute Distress Head: Normocephalic, Atraumatic Eyes: Perrl, EOMI ENT: Moist mucous membranes, No rhinorrhea, TM's clear, Sinus tenderness - Right sided Neck: Supple, Nontender Cardiovascular: Regular rate, Regular rhythm, No murmurs Respiratory: No distress, CTA bilaterally, Chest nontender Abdomen: Soft, Nondistended, Normal bowel sounds, Tender - Left upper quadrant, epigastric region. Negative for: Guarding, Rebound tenderness, Barrientos's sign Back: Nontender, Normal Inspection Extremities: Nontender, No edema Skin: Normal color, No rash Neurological: Alert, Oriented x3, Cranial nerves II-XII grossly intact, Normal Strength, Normal Sensation Psychological: Normal affect, Normal Mood Diagnostic/Tx/Re-eval Chest X-Ray - ED: 2 View, Read by ED Physician, Read by Radiologist, No Acute Disease Laboratory Data 01/28/19 01/28/19 01/28/19 11:10 11:10 11:16 WBC 5.2 RBC 4.30 Hgb 12.7 Hct 38.8 MCV 90.2 MCH 29.5 MCHC 32.7 RDW Std Deviation 40.6 RDW Coeff of [place] 12.4 Plt Count 242 MPV 9.5 Immature Gran % (Auto) 0.200 Neut % (Auto) 46.3 L Lymph % (Auto) 40.8 [place] % (Auto) 9.0 Eos % (Auto) 2.9 Baso % (Auto) 0.8 Absolute Neuts (auto) 2.4 Absolute Lymphs (auto) 2.13 Nucleated RBC % 0 Sodium Potassium Chloride Carbon Dioxide Anion Gap BUN Creatinine Estim Creat Clear Calc Est GFR (MDRD) Af Amer Est GFR (MDRD) Non-Af BUN/Creatinine Ratio Glucose Calcium Total Bilirubin AST ALT Alkaline Phosphatase Total Protein Albumin Globulin Albumin/Globulin Ratio Lipase Urine Color Yellow Urine Clarity Sl. Cloudy Urine pH 8.0 Ur Specific [place] 1.010 Urine Protein Negative Urine Glucose (UA) Normal Urine Ketones Negative Urine Occult Blood Negative Urine Nitrite Negative Urine Bilirubin Negative Urine Urobilinogen Normal Ur Leukocyte Esterase 25 H Urine RBC 0 SEEN Urine WBC 0 SEEN Ur Squamous Epith Cells 0-5 SEEN Urine Bacteria RARE Urine Mucus 0 SEEN Urine Test Negative 01/28/19 11:16 WBC RBC Hgb Hct MCV MCH MCHC RDW Std Deviation RDW Coeff of [place] Plt Count MPV Immature Gran % (Auto) Neut % (Auto) Lymph % (Auto) [place] % (Auto) Eos % (Auto) Baso % (Auto) Absolute Neuts (auto) Absolute Lymphs (auto) Nucleated RBC % Sodium 139 Potassium 3.8 Chloride 105 Carbon Dioxide 28.0 Anion Gap 6 BUN 12 Creatinine 0.79 Estim Creat Clear Calc 89.84 Est GFR (MDRD) Af Amer 118 Est GFR (MDRD) Non-Af 98 BUN/Creatinine Ratio 15.2 Glucose 84 Calcium 8.7 Total Bilirubin 0.70 AST 26 ALT 50 Alkaline Phosphatase 53 Total Protein 7.1 Albumin 3.4 Globulin 3.7 Albumin/Globulin Ratio 0.9 Lipase 66 L Urine Color Urine Clarity Urine pH Ur Specific [place] Urine Protein Urine Glucose (UA) Urine Ketones Urine Occult Blood Urine Nitrite Urine Bilirubin Urine Urobilinogen Ur Leukocyte Esterase Urine RBC Urine WBC Ur Squamous Epith Cells Urine Bacteria Urine Mucus Urine Test - Medical Decision Making Evaluated for upper respiratory symptoms including congestion, ear pain and sore throat. In addition she has chronic upper abdominal pain that is been worsening over the past 2 months. Patient is been evaluated twice in the ER for this abdominal pain within the last month. Once was by myself as well. Patient is no significant change in her symptoms. She is currently on omeprazole which does not seem to be helping. She does elicit some history of constipation. Chest x-ray does not show any acute process however she does have moderate stool burden noted incidentally. Patient is given Bentyl and Sudafed in the ER for symptoms. I suspect she has a viral illness that is causing her upper respiratory symptoms. In addition she might have a component of constipation that is causing her belly pain. She has normal work as well as a grossly normal urinalysis. I do not think she requires antibiotics or emergent surgical consult this time. Do not think further abdominal imaging is indicated. Patient will be referred to surgery for EGD. She is agreeable this plan. She will be started on MiraLAX as well as Bentyl. It is also stressed to the patient that she needs to follow-up with her primary care provider. Patient is counseled on signs and symptoms requiring return to the emergency room. Patient verbalizes agreement and understand this plan. Patient discharged home in stable and improved condition. ED Disposition - Plan for ED Patient: Disposition: Home or Assisted Living Diagnosis: URI, acute, Abdominal pain Instructions: ABDOMINAL PAIN, Unknown Cause, (Female), CONSTIPATION (Adult), Adult Self-Care for Colds and Flu Prescriptions: Dicyclomine HCl [Bentyl] 10 mg PO ACHS PRN #20 cap PRN Reason: Gi Cramping Prescription Printed Polyethylene Glycol 3350 [Miralax] 119 gm PO DAILY #1 bottle Prescription Printed Referrals: Raleigh Brink DO [Primary Care Provider] - Cora Liu MD [STAFF PHYSICIAN] - Additional Instructions: Follow-up with your primary care doctor as well as the surgeon you referred to today. Take medications as prescribed. Continue taking antacid medication. Eat a bland diet. Drink plenty of fluids. Return to emergency room with worsen ing or changing symptoms. Take [id number] cold and flu medicine as needed for your congestion and other symptoms.
[2019-01-28 11:24] LABS: Mucous, Urine 0 SEEN /hpf (<or=2+); Red Blood Cells-Urine 0 SEEN /hpf (0-5); White Blood Cells 0 SEEN /hpf (0-5)
[2019-01-28 11:27] LABS: Color, Urine Yellow (Yellow); Glucose, Dipstick Normal (Normal); Ketone-Dipstick Negative (Negative); Leukocyte Esterase-Dipstick 25 /ul (Negative); Nitrite-Dipstick Negative (Negative); Occult Blood-Urine Negative /ul (Negative); Protein-Dipstick Negative (Negative); Urine Bilirubin Dipstick Negative (Negative); Urine Clarity Sl. Cloudy (Clear); Urine Urobilinogen Normal (Normal)
[2019-01-28 11:28] LABS: Absolute Lymphocyte Count 2.13 X10^3/uL (0.83-4.51); Absolute Neutrophil Count 2.4 X10^3/uL (2.0-7.7); Basophil# 0.04 X10^3/uL; Basophil% 0.8 % (0-1); Eosinophil# 0.15 X10^3/uL; Eosinophils% 2.9 % (0-5); Hematocrit 38.8 % (37-47); Hemoglobin 12.7 g/dL (12.0-15.0); Lymphocyte # 2.13 X10^3/ul (4.0); Lymphocyte % 40.8 % (19-41); Mean Corp Hgb Conc 32.7 g/dL (32-36); Mean Corpuscular Hgb 29.5 pg (27.0-32.0); Mean Corpuscular Volume 90.2 fL (81-99); Mean Platelet Vol. 9.5 fl (6.2-12.0); Monocyte# 0.47 X10^3/uL; NRBC Flagged by Analyzer 0 % (0-5); Neutrophil # 2.42 X10^3/uL (2.7-7.7); Neutrophil % 46.3 % (47-70); Platelet Count 242 K/mm3 (150-450); RBC Distribution Width CV 12.4 % (11.6-14.6); RBC Distribution Width SD 40.6 fl (35.1-43.9); White Blood Count 5.2 K/mm3 (4.4-11.0)
[2019-01-28 11:29] LABS: Internal QC Validated? YES +Cl - CLEAR BKGD; Pregnancy, Urine Negative Negative
[2019-01-28 11:33] LABS: Bacteria RARE /hpf (None Seen); Squamous Epithelial Cells - UA 0-5 SEEN /hpf (5-10)
--- NOTE | 2019-01-28 11:42 | RAD_ITS ---
STUDY: X-RAY CHEST REASON FOR EXAM: Female, 18 years old. Chest pain. TECHNIQUE: PA and lateral views of the chest. COMPARISON: January 14, 2019. FINDINGS: Cardiac silhouette unremarkable. Pulmonary vascularity unremarkable. Aorta unremarkable. No focal patchy airspace opacities. No pleural effusions. Upper abdomen unremarkable. Osseous structures intact. No pneumothorax. RAD/Chest PA and Lateral IMPRESSION: No acute cardiopulmonary findings Electronically Signed: Chung Barker DO at 12:13 EDT Tel , Service support ,
[2019-01-28 11:46] LABS: ALB/GLOB Ratio 0.9 RATIO (0.9-2.4); AST(SGOT) 26 U/L (15-37); Alanine Aminotransfer ALT/SGPT 50 U/L (13-56); Albumin, Serum 3.4 g/dL (3.2-5.0); Alkaline Phosphatase 53 U/L (45-117); Anion Gap 6 (5-15); BUN 12 mg/dL (7-18); BUN/Creat Ratio 15.2 RATIO (10-20); Calcium,Total 8.7 mg/dL (8.5-10.1); Chloride 105 mmol/L (98-107); Creatinine, Serum 0.79 mg/dL (0.55-1.02); EST Glomerular Filtration Rate 98 mL/min (>60); Est Glom Filt Rate - Afr Amer 118 mL/min (>60); Estimated Creatinine Clearance 89.84 ml/min; Globulin 3.7 g/dL (2.2-4.2); Glucose 84 mg/dL (74-106); Lipase 66 U/L (73-393); Potassium 3.8 mmol/L (3.5-5.1); Protein, Total 7.1 g/dL (6.4-8.2); Sodium Level 139 mmol/L (136-145)
[2019-01-28] MEDS: 0.9% Normal Saline 1,000 ML 999 ML IV (12:00)
[2019-01-28] MEDS: Dicyclomine 10 MG Capsule 20 MG PO (12:10)
[2019-01-28 12:11] VITALS: BP 108/62; PULSE 74; RESP 16; O2SAT 99
== END 2019-01-28 12:17 | disposition home or self-care (01) ==
PROVIDERS: Emergency Provider Emergency Medicine; Family Provider Family Medicine; PCP Family Medicine
DX: J06.9 Acute upper respiratory infection, unspecified (principal); R10.12 Left upper quadrant pain; R10.13 Epigastric pain; Z90.49 Acquired absence of other specified parts of digestive tract
CPT/HCPCS: 71046; 80053; 81001; 81025; 83690; 85025; 99283; J7030; A4216

== ENCOUNTER 2019-02-11 16:10 | Emergency (ER) | payer MEDICAID, SELFPAY ==
[2019-02-11 16:12] VITALS: BP 120/79; PULSE 90; RESP 16; TEMP 36.2; O2SAT 99; BMI 32.5
[2019-02-11 16:42] VITALS: BP 112/71; PULSE 81; RESP 17; O2SAT 100
--- NOTE | 2019-02-11 17:00 | CT_ITS ---
STUDY: CT BRAIN WITHOUT CONTRAST REASON FOR EXAM: Female, 18 years old. Hit head on drawer. RADIATION DOSAGE (If Supplied By Facility): CTDIvol = ( 44.99 ) mGy, DLP = ( 745.49 ) mGycm TECHNIQUE: Transaxial CT imaging of the brain was performed without administration of intravenous contrast material. Individualized dose optimization techniques were used for this CT. COMPARISON: Noncontrast CT brain January 07, 2019. FINDINGS: Normal soft tissue structures. Normal calvarium. Normal size ventricles and extra-axial spaces for the patient's age. Normal white matter tracts of the cerebral hemispheres. Normal basal ganglia and thalami. Normal brainstem. Normal cerebellum. There is no intracranial hemorrhage. There are no findings of an acute ischemic infarction. Normal visualized paranasal sinuses. CT/Brain/Head without Contrast IMPRESSION: Normal unenhanced CT scan of the brain. The right maxillary sinusitis seen on prior study appears to have resolved. Electronically Signed: Ramses Jones MD at 17:51 EDT , Service support ,
--- NOTE | 2019-02-11 17:00 | EKG12_ITS ---
Test Reason : CP Blood Pressure : / mmHG Vent. Rate : 077 BPM Atrial Rate : 077 BPM P-R Int : 134 ms QRS Dur : 076 ms QT Int : 350 ms P-R-T Axes : 061 023 032 degrees QTc Int : 396 ms Normal sinus rhythm Normal ECG Confirmed by VICKI FRENCH ([id number]), loan expeditor MARIZOL ALBERT ([id number]) on 02/17/2019 3:35:10 PM Referred By: Confirmed By:VICKI FRENCH
--- NOTE | 2019-02-11 17:30 | RAD_ITS ---
STUDY: X-RAY CHEST REASON FOR EXAM: Female, 18 years old. Head injury, pain, cough. TECHNIQUE: PA and lateral views of the chest. COMPARISON: PA and lateral chest x-ray January 28, 2019. FINDINGS: The lungs are clear and expanded. There is no demonstrated pleural abnormality. Normal size heart. Normal mediastinum and saida. Normal visualized pulmonary arteries. Normal visualized aortic arch and descending thoracic aorta. Normal visualized thoracic spine. Normal visualized ribs, clavicles, and shoulders. There is no demonstrated abnormality of the visualized soft tissue structures of the upper abdomen. RAD/Chest PA and Lateral IMPRESSION: Normal x-ray examination of the chest. Electronically Signed: Ramses Jones MD at 17:55 EDT , Service support ,
--- NOTE | 2019-02-11 18:03 | ED.VISSUMM ---
- ER Visit Summary Date of Service: 02/11/19 Chief Complaint: Hit head History of Present Illness: The patient is a 18 F who hit her head today. She was standing up when she hit the back of her head on a cabinet. She did not lose consciousness. She complains of a headache and feeling lightheaded. She has also had a cough recently. Some chest pain. No sputum or fevers. No history of DVTs. Physical Examination: Afebrile and vital signs unremarkable. Patient alert and oriented. No acute distress. Head and neck atraumatic. HEENT exam unremarkable. Heart regular. Lungs clear. Legs nontender. No edema. No focal or lateralizing neurologic abnormalities. Test Results: CT brain showed nothing acute. Chest x-ray and EKG were unremarkable. Emergency Department Course and Treatment: Patient had work-up as above. Imaging and EKG unremarkable. There is nothing to suggest PE. Nothing to suggest infection. Patient was treated with Compazine and Benadryl as she has an allergy to anti-inflammatory drugs. She will follow-up as an outpatient. Return for any new or worsening issues. Treatment Plan: As above Disposition: Discharge Impression: 1. Closed head injury This note was generated with [employer] dictation software. It may contain incorrect words, spelling, and punctuation that were not noted in review of the chart prior to signing ED Disposition - Plan for ED Patient: Referrals: Raleigh Brink DO [Primary Care Provider] -
--- NOTE | 2019-02-11 18:15 | ED.DEP ---
ED Disposition - Plan for ED Patient: Instructions: CONCUSSION, No Wake Up Referrals: Raleigh Brink DO [Primary Care Provider] -
[2019-02-11 18:24] VITALS: BP 112/65; PULSE 69; RESP 15; O2SAT 99
[2019-02-11] MEDS: proCHLORPERazine 10 MG/2 ML Vial IM (18:28)
[2019-02-11] MEDS: DiphenhydrAMINE 50 MG/ML Syringe 25 MG IM (18:28)
== END 2019-02-11 18:29 | disposition home or self-care (01) ==
LOC: ED 16:49
PROVIDERS: Emergency Provider Emergency Medicine; Family Provider Family Medicine; PCP Family Medicine
DX: S09.90XA Unspecified injury of head, initial encounter (principal); W22.8XXA Striking against or struck by other objects, initial encounter; Y93.89 Activity, other specified
CPT/HCPCS: 70450; 71046; 93005; 96372; 99282

== ENCOUNTER 2019-05-06 10:57 | Emergency (ER) | payer MEDICAID, SELFPAY ==
[2019-05-06 10:58] VITALS: BP 120/65; PULSE 110; RESP 16; TEMP 37.1; O2SAT 100; BMI 27.4
--- NOTE | 2019-05-06 11:08 | RAD_ITS ---
STUDY: X-RAY CHEST REASON FOR EXAM: Female, 19 years old. COUGH, LIGHT HEADED, UPPER CHEST PAIN TECHNIQUE: PA and lateral views of the chest. COMPARISON: February 06, 2019. FINDINGS: The lungs are clear and expanded. There is no demonstrated pleural abnormality. Normal size heart. Normal mediastinum and saida. Normal visualized pulmonary arteries. Normal visualized aortic arch and descending thoracic aorta. Normal visualized thoracic spine. Normal visualized ribs, clavicles, and shoulders. There is no demonstrated abnormality of the visualized soft tissue structures of the upper abdomen. RAD/Chest PA and Lateral IMPRESSION: Normal x-ray examination of the chest. Electronically Signed: Gordon Lowry MD at 12:15 EST , Service support ,
[2019-05-06 11:22] VITALS: BP 109/75; BP 114/83; BP 117/72; PULSE 85; PULSE 89; PULSE 98
[2019-05-06 11:36] LABS: Bacteria 0 SEEN /hpf (None Seen); Mucous, Urine 0 SEEN /hpf (<or=2+); Red Blood Cells-Urine 0 SEEN /hpf (0-5); White Blood Cells 0 SEEN /hpf (0-5)
[2019-05-06 11:41] LABS: Internal QC Validated? YES +Cl - CLEAR BKGD; Pregnancy, Urine Negative Negative
[2019-05-06 11:43] LABS: Color, Urine Yellow (Yellow); Glucose, Dipstick Normal (Normal); Ketone-Dipstick Negative (Negative); Leukocyte Esterase-Dipstick Negative /ul (Negative); Nitrite-Dipstick Negative (Negative); Occult Blood-Urine Negative /ul (Negative); Protein-Dipstick Negative (Negative); Specific Gravity, Urine 1.015 (1.002-1.030); Urine Bilirubin Dipstick Negative (Negative); Urine Clarity Sl. Cloudy (Clear); Urine Urobilinogen Normal (Normal)
[2019-05-06 11:45] LABS: Squamous Epithelial Cells - UA 0-5 SEEN /hpf (5-10)
[2019-05-06 12:07] VITALS: BP 117/78; PULSE 82; RESP 18; TEMP 36.9; O2SAT 97
--- NOTE | 2019-05-06 12:14 | ED.DCSUM_ITS ---
- ER Visit Summary Date of Service: 05/06/19 Chief Complaint: [Cough] History of Present Illness: The patient is a 19 F [presents the emergency department with a cough that she is had for about 3 weeks. Patient states that this morning she started with a sore throat and when she got up she felt lightheaded and dizzy and felt like she might pass out. Patient states that she bumped her head on the door. No loss of consciousness. Patient had a fever yesterday up to 100.3. Today she also has had some mild dysuria and frequency. He has had no nausea or vomiting. No diarrhea. She has had multiple family members that have been ill.] Physical Examination: [HEENT-PERRLA, EOMI. Cranial nerves II through XII grossly intact. TMs clear. Mucous membranes moist. No adenopathy. Cardiovascular-regular rate and rhythm without murmur or ectopy Lungs-clear to auscultation, chest wall stable without crepitus or subcu emphysema Abdomen-normoactive bowel sounds, soft, nontender, no rebound or rigidity, no peritoneal signs. Extremities-intact ?4, normal range of motion, normal pulses, atraumatic] Test Results: [Chest x-ray obtained was normal. Urinalysis was normal. hCG was negative. Strep screen was negative. Influenza screen was negative.] Emergency Department Course and Treatment: [] Treatment Plan: [Advised use ibuprofen or Tylenol for fever and body aches. Patient will be given a prescription for Tessalon Perles. Patient advised to push fluids. She likely has a viral URI. Patient advised to follow-up with her primary care physician 3 to 5 days. Patient advised to return if increasing shortness of breath or condition should worsen anyway.] Disposition: [Discharged home in stable condition.] Impression: [Viral URI] This note was generated with [employer] dictation software. It may contain incorrect words, spelling, and punctuation that were not noted in review of the chart prior to signing ED Disposition - Plan for ED Patient: Referrals: Raleigh Brink DO [Primary Care Provider] -
--- NOTE | 2019-05-06 12:16 | ED.DEP ---
ED Disposition - Plan for ED Patient: Instructions: BRONCHITIS, No Antibiotic (Adult) Prescriptions: Benzonatate [Tessalon Perle] 200 mg PO TID PRN PRN #20 cap PRN Reason: Cough Prescription Printed Referrals: Raleigh Brink DO [Primary Care Provider] - 3-5 Days
== END 2019-05-06 12:43 | disposition home or self-care (01) ==
LOC: ED 12:03
PROVIDERS: Emergency Provider Emergency Medicine; Family Provider Family Medicine; PCP Family Medicine
DX: J06.9 Acute upper respiratory infection, unspecified (principal); R30.0 Dysuria; R35.0 Frequency of micturition
CPT/HCPCS: 71046; 81001; 81025; 87804; 87880; 99283

== ENCOUNTER → 2019-06-09 | Outpatient (CLI) | payer MEDICAID, SELFPAY ==
[2019-06-09 15:48] VITALS: BMI 27.4
[2019-06-09 19:37] LABS: Chlamydia Trachomatis by PCR Negative (Negative); Neisserai gonorrhoeae by PCR Negative (Negative); Probe Check PASS; Sample Adequacy Control PASS; Specimen Processing Control PASS
[2019-06-13 15:05] LABS: HPV Reflexed? NOT INDICATED
== END | disposition home or self-care (01) ==
LOC: LABSPEC 17:07
PROVIDERS: PCP Family Medicine; Referring Provider Nurse Practitioner Women's Health; Visit Provider Nurse Practitioner Women's Health
DX: Z12.4 Encounter for screening for malignant neoplasm of cervix (principal); Z11.3 Encounter for screening for infections with a predominantly sexual mode of transmission; N89.8 Other specified noninflammatory disorders of vagina
CPT/HCPCS: 87070; 87205; 87491; 87591; 88175; G0145

== ENCOUNTER 2019-06-23 13:14 | Emergency (ER) | payer MEDICAID, SELFPAY ==
[2019-06-09 15:48] VITALS: BMI 27.4
[2019-06-23 13:15] VITALS: BP 139/86; PULSE 90; RESP 18; TEMP 37.2; O2SAT 100; BMI 36.3
--- NOTE | 2019-06-23 13:40 | RAD_ITS ---
STUDY: X-RAY CHEST REASON FOR EXAM: Female, 19 years old. COUGH/SOB X 1 MONTH. HEMO PTOSIS THIS A.M. TECHNIQUE: PA and lateral views of the chest. COMPARISON: Comparison is made with prior study dated May 06, 2019. FINDINGS: The lungs are clear and expanded. There is no demonstrated pleural abnormality. Normal size heart. Normal mediastinum and saida. Normal visualized pulmonary arteries. Normal visualized aortic arch and descending thoracic aorta. Normal visualized thoracic spine. Normal visualized ribs, clavicles, and shoulders. There is no demonstrated abnormality of the visualized soft tissue structures of the upper abdomen. RAD/Chest PA and Lateral IMPRESSION: Normal x-ray examination of the chest. Electronically Signed: Coleman Tran, at 14:46 EST , Service support ,
--- NOTE | 2019-06-23 14:10 | ED.DCSUM_ITS ---
History of Present Illness Chief Complaint: Cold Sx Informant: Patient, Family Onset: Weeks - 3-4 Context: Gradual Onset Timing: Continuous Quality: Productive cough green sputum Location: Chest Current Severity: Moderate Maximum Severity: Moderate Worsened by: - - Exertion makes dyspnea worse Relieved by: - - Rest Associated Symptoms: Nasal Congestion, Shortness of Breath - Denies wheezing. This is mostly with exertion., Hemoptysis - Small amount, just today, Productive Cough. Negative for: Headache, Nausea, Vomiting, Diarrhea, Chest Pain - Other than soreness from coughing so much Narrative: No fevers. Saw PCP 2 or 3 weeks ago, told she probably had a viral infection. No prescriptions given. Feels like she is getting worse now that she is coughed up a small amount of blood. No leg pain or swelling or orthopnea. No history of asthma. Mom states she was not immunized as a child. Also states she has having some mild left lower quadrant pain that she typically gets around the time of her cycle which is now. She had an ovarian cyst diagnosed there before. - Past Medical History (1) History of ovarian cyst Status: Suspected Past Medical History - Allergies and Home Meds Allergies/Adverse Reactions: Allergies azithromycin [From Zithromax] Allergy (Verified 06/09/19 15:23) Other NAUSEA, DIZZINESS, CHEST PAIN naproxen [From Aleve] Allergy (Verified 06/09/19 15:23) Other Primary Care Physician: Raleigh Brink DO [Primary Care Provider] - Surgical History: cholecystectomy Lives: With Family Smoking Status: Never smoker Review of Systems General: Reports: Malaise. Denies: Chills, Fever, Sweats Eyes: Denies: Visual changes - bilaterally, Diplopia ENT: Reports: Bilateral ear pain. Denies: Rhinorrhea, Sore throat Cardiovascular: Denies: Chest pain, Palpitations Respiratory: Reports: Dyspnea, Cough, Sputum, Dyspnea on exertion. Denies: Orthopnea Gastrointestinal: Reports: Abdominal pain. Denies: Nausea, Vomiting, Diarrhea, Melena, Hematochezia Genitourinary: Denies: Dysuria, Hematuria, Frequency Musculoskeletal: Denies: Back pain, Swelling, Extremity Pain Skin: Denies: Rash, Wounds Neurological: Denies: Headache, Weakness, Numbness Physical Exam Vital Signs/Narrative: Vital Signs Temp Pulse Resp BP Pulse Ox 06/23/19 13:15 98.9 F 90 18 139/86 H 100 Inital Vital Signs reviewed: Yes General: Well nourished, Well developed, Obese Head: Normocephalic, Atraumatic Eyes: Perrl, EOMI Ears: Normal external canal, TM's clear Nose: Normal Inspection, No Rhinorrhea Mouth/Throat: Normal Inspection, No Posterior Erythema Neck: Supple, Nontender, No Lymphadenopathy, No Meningismus Cardiovascular: Regular rate, Regular rhythm, No murmurs Respiratory: No distress, CTA bilaterally, Chest nontender Abdomen: Soft, Nondistended, Normal bowel sounds, Tender - Mild, left lower quadrant. Negative for: Guarding, Rebound tenderness Back: Nontender, Normal Inspection Extremities: Nontender, No edema. Negative for: Calf Tenderness Skin: Normal color, No rash, No Trauma Neurological: Alert, Oriented x3, Cranial nerves II-XII grossly intact, Normal Strength, Normal Sensation, Normal Gait Psychological: Normal affect, Normal Mood Diagnostic/Tx/Re-eval Clinical Impression(s) from Imaging Studies Chest X-Ray 06/23/19 13:40 IMPRESSION: Normal x-ray examination of the chest. Electronically Signed: Coleman Tran, at 14:46 EST , Service support , - Medical Decision Making Patient is oxygenating well at 100% on room air, her vital signs are unremarkable and her exam is unremarkable. Chest x-ray shows no pneumonia. I reassured her that the chances are that this is acute viral bronchitis and that it will need to run its course. However, since she is unimmunized and therefore potentially at risk for pertussis, and has had no improvement after 3 to 4 weeks I think it is reasonable to treat her empirically with a Z-Nestor which will be prescribed in addition to an albuterol inhaler to use as needed. Advised follow-up with her doctor if she does not feel better within a week. They are comfortable with this plan. ED Disposition - Plan for ED Patient: Disposition: Home or Assisted Living Diagnosis: Acute bronchitis Instructions: BRONCHITIS, Antiobiotic Treatment (Adult) Prescriptions: Albuterol Inhaler [Ventolin Hfa] 1 - 2 puff INHALATION Q4H PRN PRN #1 inhaler PRN Reason: Wheezing Transmission Status: Pending to [id number] Azithromycin [Zithromax Z-Nestor] 250 mg PO UD #1 box Transmission Status: Pending to [id number] Referrals: Raleigh Brink, [Primary Care Provider] - 1 Week if not improving
[2019-06-23 15:17] VITALS: BP 132/85; PULSE 86; RESP 18; O2SAT 97
== END 2019-06-23 15:17 | disposition home or self-care (01) ==
PROVIDERS: Emergency Provider Emergency Medicine; PCP Family Medicine
DX: J20.9 Acute bronchitis, unspecified (principal); E66.9 Obesity, unspecified; Z68.36 Body mass index [BMI] 36.0-36.9, adult
CPT/HCPCS: 71046; 99282

== ENCOUNTER → 2019-06-27 12:03 | Outpatient (CLI) | payer MEDICAID, SELFPAY ==
[2019-06-23 13:15] VITALS: BMI 36.3
--- NOTE | 2019-06-27 12:27 | US_ITS ---
HISTORY: Ovarian cyst. Pelvic pain. Comparison study is June 03, 2018, less than one month earlier. On the previous study a 2.7 x 1.5 x 1.5 cm heterogeneous hypoechoic area was present within the right ovary on transabdominal imaging. Findings: 50 images: Endovaginal imaging only: Physiologic volume of free fluid is present. Cervix is closed. The uterus measures 9.4 x 4.3 x 5.5 cm. The endometrial stripe is homogeneous and normal at 9 mm. Urinary bladder is beginning to fill. Color Doppler imaging over the myometrium demonstrates normal flow. The left ovary measures 3.4 x 1.8 x 2.3 cm. Contains multiple follicles. Color Doppler imaging over the left ovary suggests probable flow. Pulse-wave Doppler imaging is nondiagnostic as it was performed on the edge of the ovarian parenchyma and could be a capsular vessel. The right ovary measures 2.9 x 2 x 1.8 cm. Color Doppler imaging is nondiagnostic for flow. Pulse-wave Doppler imaging is nondiagnostic for flow as they are in the periphery of the right ovary. US/Transvaginal Non- IMPRESSION: Resolution of right ovarian complex cystic mass. at 0604 Reported and signed by: Amish Cowan MD Electronically Signed: Amish Cowan MD at 6:03 EST Tel , Service support ,
--- NOTE | 2019-06-27 12:27 | US_ITS ---
HISTORY: Ovarian cyst. Pelvic pain. Comparison study is June 03, 2018, less than one month earlier. On the previous study a 2.7 x 1.5 x 1.5 cm heterogeneous hypoechoic area was present within the right ovary on transabdominal imaging. Findings: 50 images: Endovaginal imaging only: Physiologic volume of free fluid is present. Cervix is closed. The uterus measures 9.4 x 4.3 x 5.5 cm. The endometrial stripe is homogeneous and normal at 9 mm. Urinary bladder is beginning to fill. Color Doppler imaging over the myometrium demonstrates normal flow. The left ovary measures 3.4 x 1.8 x 2.3 cm. Contains multiple follicles. Color Doppler imaging over the left ovary suggests probable flow. Pulse-wave Doppler imaging is nondiagnostic as it was performed on the edge of the ovarian parenchyma and could be a capsular vessel. The right ovary measures 2.9 x 2 x 1.8 cm. Color Doppler imaging is nondiagnostic for flow. Pulse-wave Doppler imaging is nondiagnostic for flow as they are in the periphery of the right ovary. US/Pelvic (Non ) IMPRESSION: Resolution of right ovarian complex cystic mass. at 0604 Reported and signed by: Amish Cowan MD Electronically Signed: Amish Cowan MD at 6:03 EST Tel , Service support ,
== END ==
PROVIDERS: PCP Family Medicine; Referring Provider Obstetrics & Gynecology; Visit Provider Obstetrics & Gynecology
DX: R10.2 Pelvic and perineal pain (principal); Z87.42 Personal history of other diseases of the female genital tract
CPT/HCPCS: 76830; 76856

== ENCOUNTER 2019-07-12 14:41 | Emergency (ER) | payer MEDICAID, SELFPAY ==
[2019-07-12 14:42] VITALS: BP 133/82; PULSE 101; RESP 16; TEMP 36.1; O2SAT 100; BMI 27.4
--- NOTE | 2019-07-12 15:01 | CT_ITS ---
STUDY: CT BRAIN WITHOUT CONTRAST REASON FOR EXAM: Female, 19 years old. Trauma, hit head left frontal area, syncope, nausea/vomiting. RADIATION DOSAGE (If Supplied By Facility): CTDIvol = ( 44.99 ) mGy, DLP = ( 745.49 ) mGycm TECHNIQUE: Transaxial CT imaging of the brain was performed without administration of intravenous contrast material. Individualized dose optimization techniques were used for this CT. COMPARISON: 02/11/2019 FINDINGS: Normal soft tissue structures. Normal calvarium. Normal size ventricles and extra-axial spaces for the patient''s age. Normal white matter tracts of the cerebral hemispheres. Normal basal ganglia and thalami. Normal brainstem. Normal cerebellum. There is no intracranial hemorrhage. There are no findings of an acute ischemic infarction. Normal visualized paranasal sinuses. CT/Brain/Head without Contrast IMPRESSION: Normal unenhanced CT scan of the brain. Electronically Signed: Kannan Fisher MD ([place]) at 16:09 EST , Service support ,
[2019-07-12] MEDS: Ondansetron 4 MG/2 ML Vial IV (15:13)
[2019-07-12] MEDS: 0.9% Normal Saline 1,000 ML 1000 ML IV (15:13)
[2019-07-12 15:28] LABS: Absolute Lymphocyte Count 2.09 X10^3/uL (0.83-4.51); Absolute Neutrophil Count 4.1 X10^3/uL (2.0-7.7); Basophil# 0.03 X10^3/uL; Basophil% 0.4 % (0-1); Eosinophil# 0.06 X10^3/uL; Eosinophils% 0.9 % (0-5); Hematocrit 41.8 % (37-47); Hemoglobin 13.4 g/dL (12.0-15.0); Lymphocyte # 2.09 X10^3/ul (4.0); Lymphocyte % 31.1 % (19-41); Mean Corp Hgb Conc 32.1 g/dL (32-36); Mean Corpuscular Hgb 28.6 pg (27.0-32.0); Mean Corpuscular Volume 89.3 fL (81-99); Mean Platelet Vol. 9.5 fl (6.2-12.0); Monocyte# 0.45 X10^3/uL; Monocyte% 6.7 % (0-10); NRBC Flagged by Analyzer 0 % (0-5); Neutrophil # 4.08 X10^3/uL (2.7-7.7); Neutrophil % 60.8 % (47-70); Platelet Count 305 K/mm3 (150-450); RBC Distribution Width SD 39.3 fl (35.1-43.9); Red Blood Count 4.68 M/mm3 (4.2-5.4); White Blood Count 6.7 K/mm3 (4.4-11.0)
[2019-07-12] MEDS: Ketorolac 15 MG/ML Vial IV (15:29)
[2019-07-12 15:32] LABS: Anion Gap 4 (5-15); BUN 9 mg/dL (7-18); Calcium,Total 9.1 mg/dL (8.5-10.1); Chloride 105 mmol/L (98-107); Creatinine, Serum 0.82 mg/dL (0.55-1.02); EST Glomerular Filtration Rate 94 mL/min (>60); Est Glom Filt Rate - Afr Amer 113 mL/min (>60); Estimated Creatinine Clearance 85.83 ml/min; Glucose 84 mg/dL (74-106); Potassium 3.5 mmol/L (3.5-5.1); Sodium Level 138 mmol/L (136-145)
[2019-07-12 15:39] LABS: Internal QC Validated? YES +Cl - CLEAR BKGD
[2019-07-12 15:43] LABS: Pregnancy, Serum, hCG Quali. NEGATIVE Negative
--- NOTE | 2019-07-12 15:50 | ED.VISSUMM ---
- ER Visit Summary Date of Service: 07/12/19 Chief Complaint: Abdominal pain and vomiting History of Present Illness: The patient is a [address] Brink. She reports that she began vomiting last night. She is vomited 3 times altogether. States that this morning she vomited and there was streaks of blood mixed in. She denies any blood in her emesis yesterday. She complains of a sharp diffuse abdominal pain that is 8 out of 10 currently and 10 out of 10 at worst. She denies diarrhea. Her last bowel movements yesterday. She denies any melena or hematochezia. No dysuria or frequency. No vaginal bleeding or discharge. Her last menstrual period was 2 weeks ago. Patient reports she was around family members vomiting and diarrhea last week. Patient reports that she was very lightheaded today and fell when she lost her balance. She hit her head and was unconscious for 5 minutes. She reports she has a headache but 6 out of 10 severity. She denies other injuries. Physical Examination: Vitals: Stable. Afebrile. General: Well-nourished and well-developed. Head: Normocephalic atraumatic. Neck: Supple, no lymphadenopathy. No JVD. Nontender. Cardiovascular: Regular rate and rhythm. No murmurs. Respiratory: No respiratory distress. Clear to auscultation bilaterally. Abdominal: Soft, mild diffuse tenderness to palpation, nondistended, normal bowel sounds. No guarding, rebound, or peritoneal signs. Back: Nontender. Extremities: Nontender, no edema. Skin: Normal color, no rash. Neurologic: Alert and oriented ?3. Cranial nerves II through XII are intact. Normal strength and sensation. Psych: Normal affect. Test Results: CBC is normal. Chem-7 is normal. test is negative. CT brain shows no acute disease. Emergency Department Course and Treatment: Had a prolonged discussion with the patient about the likelihood the blood in her emesis was due to a Ciara-Siu tear. She refused an NG tube. I feel that is a very reasonable course of action. She was given Toradol and Zofran here. She has had no vomiting while here. Treatment Plan: Patient will be discharged with Zofran and Bentyl. Instructed to follow-up with her primary care physician 1 to 2 days if not improving. Return to the emergency department for any worsening symptoms. Disposition: To home in improved and stable condition. Impression: 1. Vomiting. 2. Closed head injury. 3. Ciara-Siu tear. This note was generated with [employer] dictation software. It may contain incorrect words, spelling, and punctuation that were not noted in review of the chart prior to signing ED Disposition - Plan for ED Patient: Instructions: VOMITING (6y-Adult), Ciara-Siu Tear Prescriptions: Dicyclomine HCl [Bentyl] 20 mg PO TIDAC #20 capsule Ondansetron [Zofran Odt] 4 mg PO Q8H PRN PRN #10 tablet PRN Reason: Nausea Referrals: Raleigh Brink, [Primary Care Provider] - 1-2 Days if not improving
[2019-07-12 16:42] VITALS: BP 121/71; PULSE 68; RESP 16; O2SAT 98
== END 2019-07-12 16:43 | disposition home or self-care (01) ==
LOC: ED 15:04
PROVIDERS: Emergency Provider Emergency Medicine; PCP Family Medicine
DX: K22.6 Gastro-esophageal laceration-hemorrhage syndrome (principal); S09.90XA Unspecified injury of head, initial encounter; W19.XXXA Unspecified fall, initial encounter; Y93.89 Activity, other specified; Y92.9 Unspecified place or not applicable
CPT/HCPCS: 70450; 80048; 84703; 85025; 96361; 96374; 96375; 99283; J7030; A4216; J2405

== ENCOUNTER 2019-08-14 14:27 | Emergency (ER) | payer MEDICAID, SELFPAY ==
[2019-08-14 14:28] VITALS: BP 120/89; PULSE 86; RESP 15; TEMP 36.9; O2SAT 99; BMI 36.1
--- NOTE | 2019-08-14 14:49 | RAD_ITS ---
STUDY: X-RAY CHEST REASON FOR EXAM: Female, 19 years old. Pt arrives with chest pain and increased sob TECHNIQUE: Single AP portable view of the chest. COMPARISON: Comparison is made with prior study dated June 23, 2019. FINDINGS: The lungs are clear and expanded. There is no demonstrated pleural abnormality. Normal size heart. Normal mediastinum and saida. Normal visualized pulmonary arteries. Normal visualized aortic arch and descending thoracic aorta. Normal visualized thoracic spine. Normal visualized ribs, clavicles, and shoulders. There is no demonstrated abnormality of the visualized soft tissue structures of the upper abdomen. RAD/Chest 1 View (Portable) IMPRESSION: Normal x-ray examination of the chest. Electronically Signed: Coleman Tran, at 15:22 EDT , Service support ,
--- NOTE | 2019-08-14 14:49 | EKG12_ITS ---
Test Reason : CP Blood Pressure : / mmHG Vent. Rate : 089 BPM Atrial Rate : 089 BPM P-R Int : 136 ms QRS Dur : 074 ms QT Int : 344 ms P-R-T Axes : 052 017 032 degrees QTc Int : 418 ms Normal sinus rhythm Cannot rule out Anterior infarct , age undetermined Abnormal ECG Confirmed by BHASKAR ANDINO, IVONNE ([id number]), dictionary editor MARIZOL ALBERT ([id number]) on 08/18/2019 8:32:06 AM Referred By: ANDRES Confirmed By:IVONNE MURO MD
--- NOTE | 2019-08-14 14:51 | ED.DCSUM_ITS ---
History of Present Illness Chief Complaint: Chest Pain Informant: Patient Onset: Today Activity at onset: Light Activity Timing: Continuous Quality: Sharp, Stabbing Location: Left Chest Current Severity: Moderate Maximum Severity: Severe Worsened By: Movement of Arm, Movement of Torso, Palpation Relieved By: Rest Associated Symptoms: Lightheadedness. Negative for: Nausea, Vomiting, Diaphoresis, Dyspnea, Cough, Fever, Acid Reflux, Palpitations Narrative: 19-year-old female presents to the emergency department with multiple complaints. Patient states that just prior to arrival she was standing on a ladder outside 1 step off of the ground she had a sudden sharp pain in her chest mostly on her left chest where she was reaching up to pain with her left arm and stated that it felt sore. She then had an episode where she felt lightheaded and fell off the ladder landing on the ground. She did not lose consciousness. She did hit her head on the ground. She denies headache nausea vomiting blurry or double vision loss of vision difficulty speech or ambulation numbness tingling or weakness and she is not on blood thinners. She is still having the chest pain. Denies any risk factors for pulmonary embolism. She states that she has been here multiple times for chest pain in the past as well as for lightheadedness and had a CT of her brain about a month ago here for that. She has no other complaints at this time and denies any other injuries at this time Prior Similar Symptoms: Yes Recent Illness/Hospitalization: No CVD Risk Factors: Negative for: Hypertension, Diabetes, Hypercholesterolemia, Family History 1' </=55, Smoking PE Risk Factors: Negative for: Recent Travel/Surgery, Recenet Immobilization, Prior DVT or PE, Cancer, OCP + Smoking + >/=35 TAD Risk Factors: Negative for: Marfan's Syndrome, Hypertension, Family History Past Medical History - Allergies and Home Meds Allergies/Adverse Reactions: Allergies azithromycin [From Zithromax] Allergy (Verified 08/14/19 14:28) Other NAUSEA, DIZZINESS, CHEST PAIN naproxen [From Aleve] Allergy (Verified 08/14/19 14:28) Other Primary Care Physician: Raleigh Brink DO [Primary Care Provider] - Prior records reviewed: Yes Past Medical History: - - Depression Surgical History: cholecystectomy Lives: With Family Smoking Status: Never smoker Alcohol: None Review of Systems All systems negative except as indicated General: Denies: Chills, Fever, Malaise Eyes: Denies: Visual changes - bilaterally, Blurred Vision - bilaterally, Diplopia ENT: Denies: Rhinorrhea, Sore throat Cardiovascular: Reports: Chest pain. Denies: Palpitations, Heart racing Respiratory: Denies: Dyspnea, Cough, Sputum Gastrointestinal: Denies: Abdominal pain, Nausea, Vomiting, Diarrhea Genitourinary: Denies: Dysuria, Hematuria, Frequency Musculoskeletal: Denies: Myalgias, Arthralgias, Neck pain, Swelling, Extremity Pain Skin: Denies: Rash, Abscess, Abrasions, Wounds Neurological: Denies: Headache, Weakness, Parasthesia, Numbness Psych: Reports: Depression. Denies: Anxiety, Suicidal thoughts, Suicidal ideations Physical Exam Vital Signs/Narrative: Vital Signs Temp Pulse Resp BP Pulse Ox 08/14/19 14:28 98.5 F 86 15 120/89 H 99 Inital Vital Signs reviewed: Yes General: Well nourished, Well developed, No Acute Distress Head: Normocephalic, Atraumatic Eyes: Perrl, EOMI ENT: Moist mucous membranes, - - Negative hemotympanum bilaterally. No nasal septal hematoma. No raccoon or ramirez sign. Neck: Supple, Nontender Cardiovascular: Regular rate, Regular rhythm, No murmurs Respiratory: No distress, CTA bilaterally, Chest nontender Abdomen: Soft, Nontender, Nondistended, Normal bowel sounds, No masses Back: Nontender, Normal Inspection Extremities: Nontender, No edema Skin: Normal color, No rash Neurological: Alert, Oriented x3 Psychological: Normal affect, Normal Mood Diagnostic/Tx/Re-eval Chest X-Ray - ED: 1 View, Read by ED Physician, Read by Radiologist, No Acute Disease - Rhythm Strip Rhythm Strip: Sinus Rhythm Rate: 88 Ectopy: None - EKG Initial EKG Interpretation: Sinus Rhythm, No Acute Injury Pattern Prior: Unchanged - Medical Decision Making 19-year-old female presents to the emergency department with a main complaint at this time of chest pain. Her EKG is normal sinus rhythm with a rate of 89 bpm. No ischemic changes. Normal intervals. No ectopy. Portable chest x-ray shows no acute abnormality. Patient has no risk factors for coronavirus. Chest x-ray is clear. Her vital signs are stable. Her heart rate is normal. Her pulse ox is normal. She has no fever. Patient has a history of chronic chest pain and has had more than 20 visits to the emergency department within the last 1 year including many for chest pain. We discussed with patient at this time we do not feel that work-up is indicated but we did offer her one and she declined stating that she thinks it is anxiety. We think this is a reasonable plan to forego invasive testing as this is a recurrent issue and we do feel it is musculoskeletal in nature at this time. Patient did fall and hit her head however she is [place] head CT criteria negative and again we mutually agreed with patient that she does not meet criteria for imaging of her brain. In addition she had a CT of her brain 1 month ago as well. Patient will be discharged. She was advised to use Tylenol and anti- inflammatories for pain as again we think this is musculoskeletal pain. She was advised to follow-up closely as an outpatient with her primary care physician or she will return back to the emergency department for worsening symptoms which were discussed. ED Disposition - Plan for ED Patient: Disposition: Home or Assisted Living Diagnosis: Chest wall pain, Lightheadedness, Head injury Instructions: ED Chest Pain NonCardiac, ED Head Injury Adult, ED Near-Fainting Uncertain Cause Referrals: Raleigh Brink DO [Primary Care Provider] -
--- NOTE | 2019-08-14 17:24 | EKG12_ITS ---
Test Reason : CP Blood Pressure : / mmHG Vent. Rate : 055 BPM Atrial Rate : 055 BPM P-R Int : 170 ms QRS Dur : 114 ms QT Int : 482 ms P-R-T Axes : 055 181 017 degrees QTc Int : 461 ms Sinus bradycardia Right superior axis deviation Incomplete right bundle branch block Confirmed by BHASKAR ANDINO, IVONNE ([id number]), metropolitan editor MARIZOL ALBERT ([id number]) on 08/18/2019 10:52:53 AM Referred By: ANDRES Confirmed By:IVONNE MURO MD
== END 2019-08-14 15:31 | disposition home or self-care (01) ==
PROVIDERS: Emergency Provider Physician Assistant Medical; PCP Family Medicine
DX: R07.89 Other chest pain (principal); G89.29 Other chronic pain; R42 Dizziness and giddiness; S09.90XA Unspecified injury of head, initial encounter; W11.XXXA Fall on and from ladder, initial encounter; Y93.9 Activity, unspecified; Y92.9 Unspecified place or not applicable; F32.9 Major depressive disorder, single episode, unspecified
CPT/HCPCS: 71045; 93005; 99282

== ENCOUNTER → 2019-10-21 | Outpatient (CLI) | payer MEDICAID, SELFPAY ==
[2019-10-21 13:12] VITALS: BMI 36.1
[2019-10-21 19:23] LABS: Chlamydia Trachomatis by PCR Negative (Negative); Neisserai gonorrhoeae by PCR Negative (Negative); Probe Check PASS; Sample Adequacy Control PASS; Specimen Processing Control PASS
== END | disposition home or self-care (01) ==
LOC: LABSPEC 15:48
PROVIDERS: PCP Family Medicine; Referring Provider Nurse Practitioner Women's Health; Visit Provider Nurse Practitioner Women's Health
DX: Z11.3 Encounter for screening for infections with a predominantly sexual mode of transmission (principal); N39.0 Urinary tract infection, site not specified; N76.0 Acute vaginitis
CPT/HCPCS: 87070; 87086; 87088; 87205; 87491; 87591

== ENCOUNTER 2019-10-25 12:07 | Emergency (ER) | payer MEDICAID, SELFPAY ==
[2019-10-21 13:12] VITALS: BMI 36.1
[2019-10-25 12:08] VITALS: BP 132/75; PULSE 89; RESP 15; TEMP 36.7; O2SAT 99; BMI 38.2
--- NOTE | 2019-10-25 12:20 | CT_ITS ---
STUDY: CT ABDOMEN AND PELVIS WITHOUT CONTRAST REASON FOR EXAM: Female, 19 years old. LOW PELVIC PAIN. PRIOR CHOLECYSTECTOMY RADIATION DOSAGE (If Supplied By Facility): CTDIvol = ( 15.57 ) mGy, DLP = ( 797.26 ) mGycm TECHNIQUE: Transaxial images were obtained from the dome of the diaphragm to the symphysis pubis without oral contrast, and without intravenous contrast. Sagittal and coronal images were reconstructed. Individualized dose optimization techniques were used for this CT. COMPARISON: October 23, 2018 FINDINGS: The visualized lung bases are unremarkable. The visualized portions of the heart are within normal limits. The lack of intravenous contrast limits evaluation of solid visceral organs. Normal liver. The patient is status post cholecystectomy. Normal spleen. Normal pancreas. Normal bilateral adrenal glands. Normal right kidney. Normal left kidney. Normal visualized stomach. Normal small intestine. There is scattered diverticula throughout the colon. The appendix is visualized and appears normal. Normal abdominal aorta. Normal inferior vena cava. Normal retroperitoneum. Normal urinary bladder. There is minimal free fluid within the pelvis that is grossly stable. Normal abdominal wall. There are stable bilateral L5 PARS defects associated with a grade 1 anterior spondylolisthesis of L5 on S1. CT/Abdomen/Pelvis without Cont IMPRESSION: No acute intra-abdominal process. Bilateral L5 pars defects associated with a grade 1 anterior spondylolisthesis of L5 on S1. Colonic diverticulosis. Electronically Signed: Yu Ariza MD at 14:05 EDT Tel , Service support ,
--- NOTE | 2019-10-25 12:21 | RAD_ITS ---
STUDY: X-RAY CHEST REASON FOR EXAM: Female, 19 years old. COUGH, ABD PAIN, SOB TECHNIQUE: Single frontal view of the chest. COMPARISON: August 14, 2019 FINDINGS: There are low lung volumes. There is no new focal consolidation. Normal size heart. Normal mediastinum and saida. Normal visualized pulmonary arteries. Normal visualized aortic arch and descending thoracic aorta. Normal visualized thoracic spine. Normal visualized ribs, clavicles, and shoulders. There is no demonstrated abnormality of the visualized soft tissue structures of the upper abdomen. RAD/Chest 1 View IMPRESSION: No acute cardiopulmonary process. Electronically Signed: Yu Ariza MD at 14:03 EDT Tel , Service support ,
[2019-10-25] MEDS: 0.9% Normal Saline 1,000 ML 125 ML IV (12:45)
[2019-10-25] MEDS: Ketorolac 30 MG/ML Syringe IV (12:45)
[2019-10-25 12:46] LABS: Absolute Lymphocyte Count 1.65 X10^3/uL (0.83-4.51); Absolute Neutrophil Count 2.9 X10^3/uL (2.0-7.7); Basophil# 0.04 X10^3/uL; Basophil% 0.8 % (0-1); Eosinophil# 0.07 X10^3/uL; Eosinophils% 1.4 % (0-5); Hemoglobin 12.6 g/dL (12.0-15.0); Lymphocyte # 1.65 X10^3/ul (4.0); Lymphocyte % 32.4 % (19-41); Mean Corp Hgb Conc 32.3 g/dL (32-36); Mean Corpuscular Hgb 29.5 pg (27.0-32.0); Mean Corpuscular Volume 91.3 fL (81-99); Mean Platelet Vol. 9.2 fl (6.2-12.0); Monocyte# 0.46 X10^3/uL; NRBC Flagged by Analyzer 0 % (0-5); Neutrophil # 2.87 X10^3/uL (2.7-7.7); Neutrophil % 56.2 % (47-70); Platelet Count 276 K/mm3 (150-450); RBC Distribution Width CV 12.4 % (11.6-14.6); RBC Distribution Width SD 40.8 fl (35.1-43.9); Red Blood Count 4.27 M/mm3 (4.2-5.4); White Blood Count 5.1 K/mm3 (4.4-11.0)
[2019-10-25 13:20] LABS: Internal QC Validated? YES +Cl - CLEAR BKGD; Pregnancy, Serum, hCG Quali. NEGATIVE Negative
[2019-10-25 13:26] LABS: Anion Gap 5 (5-15); BUN 13 mg/dL (7-18); BUN/Creat Ratio 15.2 RATIO (10-20); Calcium,Total 8.5 mg/dL (8.5-10.1); Chloride 107 mmol/L (98-107); Creatinine, Serum 0.85 mg/dL (0.55-1.02); EST Glomerular Filtration Rate 89 mL/min (>60); Est Glom Filt Rate - Afr Amer 108 mL/min (>60); Glucose 82 mg/dL (74-106); Potassium 3.9 mmol/L (3.5-5.1); Sodium Level 140 mmol/L (136-145)
--- NOTE | 2019-10-25 13:46 | ED.VISSUMM ---
- ER Visit Summary Date of Service: 10/25/19 Chief Complaint: [] Abdominal pain History of Present Illness: The patient is a 19 F [presents to the emergency department complaint of abdominal pain that started yesterday. Patient states that she is having intermittent pain that can last up to a half an hour. Patient states she is also 2 weeks late on her menstrual period but does not believe that she is . Patient has not been sexually active in some time and does not have a boyfriend. Patient does have a history of ovarian cyst. She complains of some mild dysuria. She denies any fevers. She is had no vomiting. She did have 2 watery stools yesterday. Patient also complains of a cough that she is had for about a month and at times bring up some green to yellow sputum. Denies any sick contacts or exposures to COVID-19. Patient has had prior cholecystectomy.] Physical Examination: [HEENT-PERRLA, EOMI. Cranial nerves II through XII grossly intact. TMs clear. Mucous membranes moist. No adenopathy. Cardiovascular-regular rate and rhythm without murmur or ectopy Lungs-clear to auscultation, chest wall stable without crepitus or subcu emphysema Abdomen-normoactive bowel sounds, soft. Patient has tenderness palpation over the suprapubic region and left lower quadrant. There is no rebound, rigidity, or peritoneal signs. Extremities-intact ?4, normal range of motion, normal pulses, atraumatic] Test Results: [CBC with differential was normal. Chemistries unremarkable. hCG was negative.] CT scan of the abdomen pelvis showed diverticulosis and spondylolisthesis of L5 on S1 otherwise nothing acute. Chest x-ray showed nothing acute. Emergency Department Course and Treatment: [Given Toradol IV.] Treatment Plan: [Advised use ibuprofen or Tylenol for discomfort. She is advised to follow-up with primary care physician 3 to 5 days. Patient advised to return if worsening abdominal pain, fever, vomiting, or condition should worsen anyway.] Disposition: [Discharged home in stable condition] Impression: [Abdominal pain-etiology uncertain URI-suspect viral etiology ] This note was generated with [employer] software. It may contain incorrect words, spelling, and punctuation that were not noted in review of the chart prior to signing ED Disposition - Plan for ED Patient: Referrals: Raleigh Brink DO [Primary Care Provider] -
[2019-10-25 13:58] LABS: Mucous, Urine 0 SEEN /hpf (<or=2+); Red Blood Cells-Urine 0 SEEN /hpf (0-5); White Blood Cells 0 SEEN /hpf (0-5)
[2019-10-25 13:59] LABS: Color, Urine Yellow (Yellow); Glucose, Dipstick Normal (Normal); Ketone-Dipstick Negative (Negative); Leukocyte Esterase-Dipstick Negative /ul (Negative); Nitrite-Dipstick Negative (Negative); Occult Blood-Urine Negative /ul (Negative); Protein-Dipstick Negative (Negative); Urine Bilirubin Dipstick Negative (Negative); Urine Clarity Sl. Cloudy (Clear); Urine Urobilinogen Normal (Normal)
[2019-10-25 14:08] LABS: Bacteria RARE /hpf (None Seen); Squamous Epithelial Cells - UA 0-5 SEEN /hpf (5-10)
--- NOTE | 2019-10-25 14:23 | ED.DEP ---
ED Disposition - Plan for ED Patient: Instructions: ED Abdominal Pain Unkn Cause Fem, ED Upper Resp Infec No Abx Tx Referrals: Raleigh Brink DO [Primary Care Provider] - 3-5 Days
[2019-10-25 14:28] VITALS: BP 120/76; PULSE 77; RESP 16; O2SAT 97
--- NOTE | 2019-10-25 14:28 | ED.RN ---
DISCHARGE INSTRUCTIONS GIVEN TO AND REVIEWED WITH PATIENT, PATIENT DENIES QUESTIONS OR CONCERNS AND VOICES UNDERSTANDING OF DISCHARGE INSTRUCTIONS. PT AMBULATES OUT OF ROOM WITHOUT DIFFICULTY.
--- NOTE | 2019-12-10 15:40 | CM.ED ---
SOCIAL WORK Patient approved for ED Care plan on 12/08/2019. Patient notified via phone call this day and denied any questions or concerns. Copy of ED Care Plan and resources mailed to patient via certified mail- Tracking Number: [id number]. Notified patient's PCP-Dr. Brink. Copy of ED Care Plan and letter faxed. Ghazal Sampson, COUNTRY MANAGER, ENVIRONMENTAL PROGRAMS MANAGER
== END 2019-10-25 14:29 | disposition home or self-care (01) ==
LOC: ED 13:16
PROVIDERS: Emergency Provider Emergency Medicine; PCP Family Medicine
DX: R10.32 Left lower quadrant pain (principal); J06.9 Acute upper respiratory infection, unspecified; Z90.49 Acquired absence of other specified parts of digestive tract
CPT/HCPCS: 71045; 74176; 80048; 81001; 84703; 85025; 96361; 96374; 99283; J7030; A4216

== ENCOUNTER → 2019-11-21 14:17 | Outpatient (CLI) | payer MEDICAID, SELFPAY ==
[2019-10-21 13:12] VITALS: BMI 36.1
[2019-10-25 12:08] VITALS: BMI 38.2
--- NOTE | 2019-11-21 14:18 | US_ITS ---
STUDY: ULTRASOUND OF THE FEMALE PELVIS - COMPLETE REASON FOR EXAM: Female, 19 years old. PELVIC PAIN WITH IRREGULAR PERIOD LMP: Unknown. TECHNIQUE: Transabdominal and Transvaginal TECHNICAL QUALITY: Adequate. COMPARISON: None. FINDINGS: The uterus is anteverted and is in a midline position. The uterus measures 8.8 x 4.4 x 3.8 cm. Normal uterine cervix. The endometrium measures 9 mm in thickness, and is hyperechoic. There is no demonstrated endometrial mass. There is no demonstrated myometrial mass. I.U.D. - The patient does not have an I.U.D. The right ovary is visualized. The right ovary measures 3.3 x 2.5 x 2.1 cm. There is no right ovarian cyst or ovarian mass. There is no visualized right adnexal mass or complex lesion. There is normal arterial and normal venous vascularity. The left ovary is visualized. The left ovary measures 3.4 x 2.7 x 1.8 cm. There is no left ovarian cyst or ovarian mass. There is no visualized left adnexal mass or complex lesion. There is normal arterial and normal venous vascularity. There is minimal fluid in the cul-de-sac. The bladder is sonographically normal US/Pelvic (Non ) IMPRESSION: No suspicious sonographic findings, minimal free fluid in the cul-de-sac is likely physiologic Electronically Signed: Ramses Nichole MD at 16:56 EDT , Service support ,
--- NOTE | 2019-11-21 14:18 | US_ITS ---
STUDY: ULTRASOUND OF THE FEMALE PELVIS - COMPLETE REASON FOR EXAM: Female, 19 years old. PELVIC PAIN WITH IRREGULAR PERIOD LMP: Unknown. TECHNIQUE: Transabdominal and Transvaginal TECHNICAL QUALITY: Adequate. COMPARISON: None. FINDINGS: The uterus is anteverted and is in a midline position. The uterus measures 8.8 x 4.4 x 3.8 cm. Normal uterine cervix. The endometrium measures 9 mm in thickness, and is hyperechoic. There is no demonstrated endometrial mass. There is no demonstrated myometrial mass. I.U.D. - The patient does not have an I.U.D. The right ovary is visualized. The right ovary measures 3.3 x 2.5 x 2.1 cm. There is no right ovarian cyst or ovarian mass. There is no visualized right adnexal mass or complex lesion. There is normal arterial and normal venous vascularity. The left ovary is visualized. The left ovary measures 3.4 x 2.7 x 1.8 cm. There is no left ovarian cyst or ovarian mass. There is no visualized left adnexal mass or complex lesion. There is normal arterial and normal venous vascularity. There is minimal fluid in the cul-de-sac. The bladder is sonographically normal US/Transvaginal Non- IMPRESSION: No suspicious sonographic findings, minimal free fluid in the cul-de-sac is likely physiologic Electronically Signed: Ramses Nichole MD at 16:56 EDT , Service support ,
== END ==
PROVIDERS: PCP Family Medicine; Referring Provider Nurse Practitioner Women's Health; Visit Provider Nurse Practitioner Women's Health
DX: R10.2 Pelvic and perineal pain (principal)
CPT/HCPCS: 76830; 76856; 93976

== ENCOUNTER → 2020-07-30 15:30 | Outpatient (CLI) | payer MEDICAID, SELFPAY ==
--- NOTE | 2020-07-30 15:31 | MRI_ITS ---
STUDY: MRI CERVICAL SPINE WITHOUT CONTRAST REASON FOR EXAM: Female, 20 years old. pain TECHNIQUE: Standardized fat and water weighted pulse sequences were obtained in the sagittal and axial planes. COMPARISON: None FINDINGS: Normal foramen magnum and brainstem-cervical cord junction. Normal craniovertebral junction. Normal anterior atlantoaxial articulation. Normal odontoid process. Decreased cervical lordosis. Normal vertebral bodies and posterior osseous elements. C2-3: Normal endplates. Normal disc height, signal and morphology. Normal central canal and intervertebral neural foramina. C3-4: Normal endplates. Normal disc height, signal and morphology. Normal central canal and intervertebral neural foramina. C4-5: Normal endplates. Normal disc height, signal and morphology. Normal central canal and intervertebral neural foramina. C5-6: Normal endplates. Normal disc height, signal and minimal bulging of the disc.. Normal central canal and intervertebral neural foramina. C6-7: Normal endplates. Normal disc height, signal and minimal bulging of the disc.. Normal central canal and intervertebral neural foramina. C7-T1: Normal endplates. Normal disc height, signal and morphology. Normal central canal and intervertebral neural foramina. Normal cervical cord. Normal visualized soft tissue structures. MRI/Spine Cervical (Routine) IMPRESSION: No evidence for acute fracture or other significant bony pathology Minimal bulging of the disc at C5-6 and C6-7 without spinal stenosis or cord compression... Electronically Signed: Shon Wiley MD at 21:02 EDT , Service support ,
== END ==
PROVIDERS: PCP Family Medicine; Referring Provider Orthopaedic Surgery; Visit Provider Orthopaedic Surgery
DX: M54.12 Radiculopathy, cervical region (principal)
CPT/HCPCS: 72141

== ENCOUNTER → 2022-07-20 | Outpatient (CLI) | payer MEDICAID, SELFPAY ==
[2022-07-24 22:06] LABS: Chlamydia By Nucleic Acid AMP Negative (Negative)
[2022-07-25 08:57] LABS: Gonococcus By Nucleic Acid AMP Negative (Negative)
== END | disposition home or self-care (01) ==
PROVIDERS: PCP Family Medicine; Referring Provider Registered Nurse; Visit Provider Registered Nurse
DX: Z11.3 Encounter for screening for infections with a predominantly sexual mode of transmission (principal)
CPT/HCPCS: 87070; 87205; 87491; 87591

== ENCOUNTER → 2022-11-23 | Outpatient (CLI) | payer MEDICAID, SELFPAY ==
[2022-11-27 21:12] LABS: Chlamydia By Nucleic Acid AMP Negative (Negative); Gonococcus By Nucleic Acid AMP Negative (Negative)
[2022-11-28 15:29] LABS: HPV Reflexed? NOT INDICATED
== END | disposition home or self-care (01) ==
LOC: OPUS 16:54
PROVIDERS: PCP Family Medicine; Referring Provider Registered Nurse; Visit Provider Registered Nurse
DX: Z12.4 Encounter for screening for malignant neoplasm of cervix (principal); Z11.3 Encounter for screening for infections with a predominantly sexual mode of transmission
CPT/HCPCS: 87070; 87205; 87491; 87591; 88175; G0145

== ENCOUNTER → 2022-12-08 | Outpatient (CLI) | payer MEDICAID, SELFPAY ==
--- NOTE | 2022-12-08 09:07 | US_ITS ---
STUDY: ULTRASOUND OF THE FEMALE PELVIS - COMPLETE REASON FOR EXAM: Female, 22 years old. Pelvic pain LMP: November 17, 2022. TECHNIQUE: Transvaginal TECHNICAL QUALITY: Adequate. COMPARISON: Comparison is made with prior study dated November 21, 2019. FINDINGS: The uterus is anteverted and is in a midline position. The uterus measures 9.3 cm x 5.3 cm x 4.2 cm. Normal uterine cervix. The endometrium is thickened and measures 18.2 mm in thickness, and is heterogeneous (striated). I suspect a 2.3 cm x 1.1 signed by 1.1 cm endometrial polyp. There is no demonstrated myometrial mass. I.U.D. - The patient does not have an I.U.D. The right ovary is visualized. The right ovary measures 3.9 cm x 2.1 cm x 2 cm. There is no right ovarian cyst or ovarian mass. There is no visualized right adnexal mass or complex lesion. There is normal arterial and normal venous vascularity. The left ovary is visualized. The left ovary measures 2.9 cm x 2.7 cm x 2 cm. There is no left ovarian cyst or ovarian mass. There is no visualized left adnexal mass or complex lesion. There is normal arterial and normal venous vascularity. There is minimal fluid in the cul-de-sac. US/Transvaginal Non- IMPRESSION: Endometrial thickening. Findings suggestive of a 2.3 cm x 1.17 x 1.1 cm endometrial polyp. Electronically Signed: Coleman Tran MD at 13:13 EDT ,
== END | disposition home or self-care (01) ==
LOC: OPUS 09:06
PROVIDERS: Referring Provider Registered Nurse; Visit Provider Registered Nurse
DX: R10.2 Pelvic and perineal pain (principal); Z87.42 Personal history of other diseases of the female genital tract
CPT/HCPCS: 76830

== ENCOUNTER → 2023-12-12 | Outpatient (CLI) | payer SELFPAY | END | disposition home or self-care (01) | LOC: LABSPEC 17:02 | PROVIDERS: Referring Provider Advanced Practice Midwife; Visit Provider Advanced Practice Midwife | DX: N89.8 Other specified noninflammatory disorders of vagina (principal) | CPT/HCPCS: 87070; 87205 ==